=== PATIENT | female | born 1955 | race African-American/Black ===

== ENCOUNTER 2017-12-27 03:07 | Inpatient (IN) | payer BC ==
[~2017-12-27] VITALS: Ht 165.1 cm; Wt 74.4 kg
[2017-12-27] VITALS (8 sets, daily range): BP systolic 104–128; BP diastolic 62–75
[2017-12-27] MEDS ORDERED: IBUP-1007 PO (04:45)
[2017-12-27] MEDS ORDERED: FAMO-63 PO (04:45)
[2017-12-27] MEDS ORDERED: IBUPROFEN 400 MG TABLET. PO PRN (06:15)
[2017-12-27] MEDS ORDERED: ONDANSETRON PF 4 MG/2 ML VIAL. IV PRN ×2 (06:15→10:00)
--- NOTE | 2017-12-27 08:37 | PDOC1 ---
History and Physical Date of Admission Date of Admission DATE: 12/27/17 TIME: 08:37 Identification/Chief Complaint Chief Complaint Intractable Nausea and vomiting Dizziness Lower back pain Right carotid body mass Source Source: Patient History of Present Illness History of Present Illness Ms Sidhu is a pleasant 62 yo F w/ PMHx chronic LBP who p/w intractable nausea and vomiting with dizziness to [facility] ED overnight. Over the past 2 days she had become progressively more dizzy, lost her balance frequently and began with 8-20 episodes of emesis that was not improved with laying down or medications at home. She went to ED and after multiple, 3, doses of benadryl and 3 of compazine she finally felt improved. 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 She was transferred here for further treatment. Currently her dizziness is present when turning to the right, she has nausea, but no further vomiting currently. On ROS she has no other complaints, does note she has a history of chronic LBP for which she takes occasional NSAIDs, but also underwent LESI this past Friday in [place], feels her symptoms began soon after this. She did undergo MRI of brain and spine prior to her procedure, these records are not currently available. 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 Was accompanied by family initially, but currently is by herself in the room, relatively comfortable. Past Medical History Cardiovascular: No pertinent hx Pulmonary: No pertinent hx GI: No pertinent hx Heme/Onc: No pertinent hx Hepatobiliary: No pertinent hx Psych: No pertinent hx Musculoskeletal: low back pain Rheumatologic: No pertinent hx Infectious disease: No pertinent hx ENT: No pertinent hx Renal/: No pertinent hx Endocrine: No pertinent hx Dermatology: No pertinent hx Past Surgical History Past Surgical History: Other (LESI lumbar spine), No pertinent history Family History Family History: High Cholestrol, Hypertension Social History Smoke: Quit (1 week ago) ALCOHOL: none Drugs: None Current Medications Current Medications Current Medications Ondansetron HCl (Zofran) 4 mg PRN Q4HRS PRN IV NAUSEA/VOMITING; Start 12/27/17 at 06:15 Ibuprofen (Motrin) 400 mg PRN Q6HRS PRN PO INFLAMMATION; Start 12/27/17 at 06: 15 Active Scripts Active Reported Ibuprofen 600 Mg Tablet 600 Mg PO PRN Q6HRS PRN Pepcid (Famotidine) 20 Mg Tablet 20 Mg PO HS Allergies Allergies: Coded Allergies: No Known Allergies (Verified Allergy, Unknown, 12/27/17) ROS General: No: Chills, Night Sweats, Fatigue, Malaise, Appetite, Other PSYCHOLOGICAL ROS: No: Anxiety, Behavioral Disorder, Concentration difficultie , Decreased libido, Depression, Disorientation, Hallucinations, Hostility, Irritablity, Memory difficulties, Mood Swings, Obsessive thoughts, Physical abuse, Sexual abuse, Sleep disturbances, Suicidal ideation, Other Eyes: No Blurry vision, No Decreased vision, No Double vision, No Dry eyes, No Excessive tearing, No Eye Pain, No Itchy Eyes, No Loss of vision, No Photophobia , No Scotomata, No Uses contacts, No Uses glasses, No Other HEENT: YES: Vertigo; No: Heacaches, Visual Changes, Hearing change, Nasal congestion, Nasal discharge, Oral lesions, Sinus pain, Sore Throat, Epistaxis, Sneezing, Snoring, Tinnitus, Vocal changes, Other ALLERGY AND IMMUNOLOGY: No: Hives, Insect Bite Sensitivity, Itchy/Watery Eyes, Nasal Congestion, Post Nasal Drip, Seasonal Allergies, Other Hematological and Lymphatic: No: Bleeding Problems, Blood Clots, Blood Transfusions, Brusing, Night Sweats, Pallor, Swollen Lymph Nodes, Other ENDOCRINE: No: Breast Changes, Galactorrhea, Hair Pattern Changes, Hot Flashes , Malaise/lethargy, Mood Swings, Palpitations, Polydipsia/polyuria, Skin Changes , Temperature Intolerance, Unexpected Weight Changes, Other Breast: No New/Changing Breast Lumps, No Nipple changes, No Nipple discharge, No Other Respiratory: No: Cough, Hemoptysis, Orthopnea, Pleuritic Pain, Shortness of breath, SOB with excertion, Sputum Changes, Stridor, Tachypnea, Wheezing, Other Cardiovascular: No Chest Pain, No Palpitations, No Orthopnea, No Paroxysmal Noc. Dyspnea, No Edema, No Lt Headedness, No Other Gastrointestinal: Yes Nausea, Yes Vomiting, Yes Abdominal Pain; No Diarrhea, No Constipation, No Melena, No Hematochezia, No Other Genitourinary: No Dysuria, No Frequency, No Incontinence, No Hematuria, No Retention, No Discharge, No Urgency, No Pain, No Flank Pain, No Other, No , No , No , No , No , No , No Musculoskeletal: Yes Gait Disturbance; No Joint Pain, No Joint Stiffness, No Joint Swelling, No Muscle Pain, No Muscular Weakness, No Pain In:, No Swelling In:, No Other Neurological: Yes Dizziness, Yes Gait Disturbance; No Behavorial Changes, No Bowel/Bladder ControlChng, No Confusion, No Headaches, No Impaired Coord/balance, No Memory Loss, No Numbness/Tingling, No Seizures, No Speech Problems, No Tremors, No Visual Changes, No Weakness, No Other Skin: No Dry Skin, No Eczema, No Hair Changes, No Lumps, No Mole Changes, No Mottling, No Nail Changes, No Pruritus, No Rash, No Skin Lesion Changes, No Other, No Acne Physical Exam General: Alert, Oriented X3, Cooperative, No acute distress HEENT: Atraumatic, PERRLA, EOMI, Mucous membr. moist/pink Lungs: Clear to auscultation, Normal air movement Heart: S1S2, RRR, no murmurs Abdomen: Normal bowel sounds, Soft, No tenderness, No hepatosplenomegaly, No masses Extremities: No clubbing, No cyanosis, No edema, Normal pulses, No tenderness/ swelling Skin: No rashes, No breakdown, No significant lesion Neuro: Normal speech, Strength at 5/5 X4 ext, Normal tone, Sensation intact, Cranial nerves 3-12 NL, Reflexes 2+, Other (Unsteady gait, slight nystagmus with rightward gaze prolonged) Psych/Mental Status: Mental status NL, Mood NL Vitals Vitals Vital Signs Date Time Temp Pulse Resp B/P (MAP) Pulse Ox O2 Delivery O2 Flow Rate FiO2 12/27/17 07:25 98.3 76 12 128/68 (88) 98 Room Air 98.3 VTE Prophylaxis Ordered VTE Prophylaxis Devices: Yes VTE Pharmacological Prophylaxi: No Assessment/Plan Assessment/Plan A/P: Intractable nausea and vomiting - possibly 2/2 vertigo. She has no meningeal signs and no leukocytosis, unlikely to have meningitis complications from her epidural. Compazine, zofran IV for now. Dizziness - with loss of balance, sounds to be vertigo. She had recent MRI not available, but concerning right carotid body mass may be the culprit. She does not wish for repeat MRI. PT for candace maneuvering. consult neuro. Check BMP, TSH. 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 No sign of CVA. She currently does not wish for a repeat MRI Smoker - quit 1 week ago using gum. She will request nicotine patch as I have offered Chronic LBP - s/p LESI 4 days ago, feels improved currently on tylenol and occasional ibuprofen. Will monitor FEN - NPO until nausea controlled and await vascular surgery eval, then ok for general diet PPX - SCDs FULL CODE Inpatient for intractable nausea, vomiting, inability to walk and carotid body mass will need at least 2 midnights of inpatient care. BRODY JIANG MD Dec 27, 2017 08:37
[2017-12-27] MEDS ORDERED: LACTULOSE 20 GM/30 ML SOLUTION. PO PRN (10:00)
[2017-12-27] MEDS ORDERED: ACETAMINOPHEN 325 MG TABLET. PO PRN (10:00)
[2017-12-27] MEDS ORDERED: MECLIZINE HCL 12.5 MG TABLET. PO PRN (10:00)
[2017-12-27] MEDS ORDERED: PROCHLORPERAZINE 10 MG/2 ML VIAL. IV PRN (10:00)
[2017-12-27] MEDS: IV RINGERS,LACTATED 1000ML 1,000 ML IV SCH ×2 (10:46→23:50)
--- NOTE | 2017-12-27 12:33 | PDOC2 ---
NEUROLOGY CONSULT Date of Admission Date of Admission DATE: 12/27/17 TIME: 12:08 Reason for Consult Reason for Consult: Dizziness, carotid body tumor Referring Physician Referring Physician: Dr. Rey Chapman Identification/Chief Complaint Chief Complaint Patient is a pleasant 62-year-old woman who developed symptoms on December 25, 2017. She initially felt off-balance and found herself stumbling. She had a slight headache although not severe and not currently present. Turning felt weird and made her feel more off balance. She had received a lumbar epidural injection of steroids on December 17, 2017 and was concern this was a side effect. She called the pain clinic who performed the study who felt it was not. She went to [facility] emergency room where she was felt to have a right ear infection. They noticed excoriation and swelling of the right ear. He performed a CT scan of the head and sinuses. This did not reveal an intracranial process but did reveal a tumor where the right carotid bifurcation was located. She underwent a CT angiogram of the neck which did confirm the presence of the tumor. She was transferred to [facility] for further evaluation. The epidural was quite successful at relieving her back pain. She does not have any back pain or tenderness. Sitting or standing makes her head swimming. She has not had hoarseness, double vision or trouble swallowing. Current Medications Current Medications Medications prior to admission: No prescription medications Current Medications Ondansetron HCl (Zofran) 4 mg PRN Q4HRS PRN IV NAUSEA/VOMITING; Start 12/27/17 at 06:15; Stop 12/27/17 at 10:01; Status DC Ibuprofen (Motrin) 400 mg PRN Q6HRS PRN PO INFLAMMATION; Start 12/27/17 at 06: 15 Ringer's Solution 1,000 ml @ 75 mls/hr [id number] IV Last administered on at 10:46; Start 12/27/17 at 09:50 Ondansetron HCl (Zofran) 4 mg PRN Q6HRS PRN IV NAUSEA/VOMITING; Start 12/27/17 at 10:00 Prochlorperazine Edisylate (Compazine) 10 mg PRN Q6HRS PRN IV NAUSEA/VOMITING; Start 12/27/17 at 10:00 Acetaminophen (Tylenol) 650 mg PRN Q6HRS PRN PO Headaches, Temp > 101.5F; Start 12/27/17 at 10:00 Senna/Docusate Sodium (Senna Plus) 1 tab BID PO ; Start 12/27/17 at 12:00 Lactulose (Lactulose) 20 gm PRN Q12HR PRN PO CONSTIPATION; Start 12/27/17 at 10 :00 Meclizine HCl (Antivert) 12.5 mg PRN Q6HRS PRN PO DIZZINESS; Start 12/27/17 at 10:00 Active Scripts Active Reported Ibuprofen 600 Mg Tablet 600 Mg PO PRN Q6HRS PRN Pepcid (Famotidine) 20 Mg Tablet 20 Mg PO HS Allergies Allergies: Coded Allergies: No Known Allergies (Verified Allergy, Unknown, 12/27/17) ROS Review of System Constitutional: Negative Eyes: Negative HENT: She has right ear discomfort. Respiratory: Negative Cardiovascular: Negative GI: Negative : She's had some constipation. Musculoskeletal: She was having severe back pain but this has responded to the epidural injection performed December 17, 2017. Neurologic: She has dizziness which is more of a vertiginous sensation or head swimming. Hematologic: Negative Lymphatic: Negative Psychiatric: She has a minor amount of depression. Physical Exam Physical Examination She was alert, awake and cooperative. Speech was fluent and clear. She is a good fund of recent and remote knowledge. Attention and concentration was intact. She appeared well-groomed and well-nourished. She was fully oriented. Examination of the cranial nerves revealed visual page were full to confrontation. Extraocular movements were intact. The eyes were conjugate. Pursuit movements were smooth and saccadic Movements were without dysmetria. Pupils were 3 mm. Funduscopic examination revealed an abnormal retina. There was no papilledema but she had areas of pigmentation. The muscles of mastication and facial expression were powerful symmetrically. Facial sensation was normal. Hearing was intact to finger rub bilaterally. The palate arch symmetrically and the tongue was midline with full range of motion. Sternocleidomastoid and trapezius were powerful. I did not see any rash or lesions around her ear. I do not palpate a mass in the neck. Muscle bulk and tone was normal. There was no arm or leg drift. There was no rebound. She had a tiny amount of asterixis. Power was full and symmetric in the upper and lower extremities. Reflexes were 2/4 in the upper and lower extremities. The toes are downgoing bilaterally. Coordination testing with finger to nose, heel to tucker, fine motor and rapid alternating movements was well performed. The sensory exam was intact to pain, light touch, proprioception, graphesthesia, cold thermal and vibration. There was no extinction to double simultaneous stimulation. Gait was not testable. She was able to sit for a few minutes but then she became dizzy and had to lie down. I did not see nystagmus. Auscultation of the carotid arteries did not reveal a bruit. Heart rhythm was regular without a murmur. Peripheral pulses were 2/4 and symmetric in the wrists and in the feet. There was no edema or cyanosis. I did not see a rash. Vitals VITALS Vital Signs Date Time Temp Pulse Resp B/P (MAP) Pulse Ox O2 Delivery O2 Flow Rate FiO2 12/27/17 11:03 98.5 70 14 124/69 (87) 97 Room Air 98.5 Labs Labs Laboratory Tests Test 12/27/17 10:40 Thyroid Stimulating Hormone (TSH) 0.777 uIU/mL (0.358-3.74) Laboratory Tests Test 12/27/17 10:40 Thyroid Stimulating Hormone (TSH) 0.777 uIU/mL (0.358-3.74) Images Images I reviewed the imaging results from [facility] regarding CT head and sinuses as well as CT angiogram of the neck. This revealed the lesion on the right carotid but did not reveal any other significant abnormalities. The MRI reports and images are not available from [facility]. A request has been sent. Assessment/Plan Assessment/Plan Patient is a pleasant 62-year-old woman who developed dizziness beginning December 25, 2017. She underwent an epidural injection of her lumbar spine December 17, 2017. I don't feel this relates to her current symptoms. She underwent investigation with CT scan had of the sinuses which incidentally revealed the possibility of a tumor in the right carotid bulb. It's likely this tumor also does not relate to her current symptoms. She had an MRI of the head and neck prior the symptoms the results of which are unavailable but have been requested this likely represents a vestibulopathy. I will initiate meclizine and Valium to try to reduce her dizziness. It's my understanding that vascular surgery has been consult at to comment upon the right carotid body tumor. I've asked the nurse to perform some orthostatic blood pressures. She is on close telemetry monitoring to see if there are fluctuations. I would be happy to reevaluate. KERMIT LÓPEZ MD Dec 27, 2017 12:33
[2017-12-27] MEDS: SENNOSIDES/DOCUSATE 8.6/50MG TABLET. PO SCH ×2 (15:10→20:22)
[2017-12-27] MEDS: diazePAM 2 MG TABLET PO SCH ×2 (15:11→20:32)
[2017-12-27] MEDS: MECLIZINE HCL 12.5 MG TABLET. PO SCH ×2 (15:11→20:23)
[2017-12-27] MEDS: NEOMYCIN/POLYMYXIN/HC OTIC SUSPENSION 10ML BOTTLE. AU SCH ×2 (17:46→23:52)
[2017-12-27] MEDS ORDERED: NICOTINE 14MG PATCH. TD PRN (19:15)
[2017-12-28 03:00] VITALS: BP 120/65
[2017-12-28] MEDS: NEOMYCIN/POLYMYXIN/HC OTIC SUSPENSION 10ML BOTTLE. AU SCH ×3 (06:32→18:04)
--- NOTE | 2017-12-28 06:58 | PDOC ---
PROGRESS NOTES Chief Complaint Chief Complaint Intractable nausea and vomiting Dizziness Right carotid body mass Smoker Chronic LBP History of Present Illness History of Present Illness Ms Sidhu is a pleasant 62 yo F w/ PMHx chronic LBP who p/w intractable nausea and vomiting with dizziness to [facility] ED overnight. Over the past 2 days she had become progressively more dizzy, lost her balance frequently and began with 8-20 episodes of emesis that was not improved with laying down or medications at home. She went to ED and after multiple, 3, doses of benadryl and 3 of compazine she finally felt improved. 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 She was transferred here for further treatment. Currently her dizziness is only present when turning to the right. Nausea resolved. On ROS she has a complaint she did not mention on ROS on admission, she has been losing vision in her right eye occasionally over the past 6 weeks or so and has been seen by ophtho, recommended to have retinal photography. A/P: Intractable nausea and vomiting - possibly 2/2 vertigo. She has no meningeal signs and no leukocytosis, unlikely to have meningitis complications from her epidural. Compazine, zofran IV for now. Right eye vision loss - this history if concerning for retinal vascular thrombosis, will d/w neuro if this should be investigated Dizziness - with loss of balance, sounds to be vertigo. Negative Elba-Halpike with PT 11/3. She had recent MRI not available, but concerning right carotid body mass may or may not be the culprit. She does not wish for repeat MRI. Appreciate neuro consult. Cont valium and meclizine prn. Check BMP, TSH. 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 No sign of CVA. She currently does not wish for a repeat MRI Smoker - quit 1 week ago using gum. She will request nicotine patch as I have offered Chronic LBP - s/p LESI 4 days ago, feels improved currently on tylenol and occasional ibuprofen. Will monitor FEN - General diet PPX - SCDs FULL CODE Inpatient for intractable nausea, vomiting, inability to walk and carotid body mass will need at least 2 midnights of inpatient care. Vitals Vitals Vital Signs Date Time Temp Pulse Resp B/P (MAP) Pulse Ox O2 Delivery O2 Flow Rate FiO2 12/28/17 03:00 98.3 68 16 120/65 (83) 98 Room Air 98.3 Physical Exam General: Alert, Oriented X3, Cooperative, No acute distress Abdomen: Normal bowel sounds, Soft, No tenderness, No hepatosplenomegaly, No masses Extremities: No clubbing, No cyanosis, No edema, Normal pulses, No tenderness/ swelling Skin: No rashes, No breakdown, No significant lesion Labs LABS Laboratory Tests Test 12/27/17 10:40 Thyroid Stimulating Hormone (TSH) 0.777 uIU/mL (0.358-3.74) Comment Review of Relevant I have reviewed the following items fanny (where applicable) has been applied. Labs Laboratory Tests Test 12/27/17 10:40 Thyroid Stimulating Hormone (TSH) 0.777 uIU/mL (0.358-3.74) Laboratory Tests Test 12/27/17 10:40 Thyroid Stimulating Hormone (TSH) 0.777 uIU/mL (0.358-3.74) Medications Current Medications Ondansetron HCl (Zofran) 4 mg PRN Q4HRS PRN IV NAUSEA/VOMITING; Start 12/27/17 at 06:15; Stop 12/27/17 at 10:01; Status DC Ibuprofen (Motrin) 400 mg PRN Q6HRS PRN PO INFLAMMATION; Start 12/27/17 at 06: 15 Ringer's Solution 1,000 ml @ 75 mls/hr [id number] IV Last administered on at 23:50; Start 12/27/17 at 09:50 Ondansetron HCl (Zofran) 4 mg PRN Q6HRS PRN IV NAUSEA/VOMITING; Start 12/27/17 at 10:00 Prochlorperazine Edisylate (Compazine) 10 mg PRN Q6HRS PRN IV NAUSEA/VOMITING; Start 12/27/17 at 10:00 Acetaminophen (Tylenol) 650 mg PRN Q6HRS PRN PO Headaches, Temp > 101.5F; Start 12/27/17 at 10:00 Senna/Docusate Sodium (Senna Plus) 1 tab BID PO Last administered on 12/27/17at 20:22; Start 12/27/17 at 12:00 Lactulose (Lactulose) 20 gm PRN Q12HR PRN PO CONSTIPATION; Start 12/27/17 at 10 :00 Meclizine HCl (Antivert) 12.5 mg PRN Q6HRS PRN PO DIZZINESS; Start 12/27/17 at 10:00 Meclizine HCl (Antivert) 25 mg TID PO Last administered on 12/27/17at 20:23; Start 12/27/17 at 14:00 Diazepam (Valium) 2 mg TID PO Last administered on 12/27/17at 15:11; Start 12/27 at 14:00 Neomycin/ Polymyxin/ Hydrocortisone (Cortisporin Otic) 2 drop Q6HRS AU Last administered on 12/28/17at 06:32; Start 12/27/17 at 18:00 Nicotine (Nicoderm Cq 14mg) 1 patch PRN DAILY PRN TD SMOKING CESSATION; Start 12/27/17 at 19:15 Active Scripts Active Reported Ibuprofen 600 Mg Tablet 600 Mg PO PRN Q6HRS PRN Pepcid (Famotidine) 20 Mg Tablet 20 Mg PO HS Vitals/I & O Vital Sign - Last 24 Hours 12/27/17 12/27/17 12/27/17 12/27/17 07:25 11:03 15:38 19:50 Temp 98.3 98.5 97.8 98.7 98.3 98.5 97.8 98.7 Pulse 76 70 66 74 Resp 12 14 14 18 B/P (MAP) 128/68 (88) 124/69 (87) 128/70 (89) 120/62 (81) Pulse Ox 98 97 98 98 O2 Delivery Room Air Room Air Room Air Room Air 12/27/17 12/28/17 23:40 03:00 Temp 98.3 98.3 98.3 98.3 Pulse 82 68 Resp 16 16 B/P (MAP) 120/70 (87) 120/65 (83) Pulse Ox 98 98 O2 Delivery Room Air Room Air Intake and Output 12/27/17 12/27/17 12/28/17 15:00 23:00 07:00 Intake Total 340 ml 1250 ml Balance 340 ml 1250 ml BRODY JIANG MD Dec 28, 2017 06:58
[2017-12-28 07:34] VITALS: BP 123/72
[2017-12-28 07:34] LABS: BASO # 0.1 x10^3/uL (0.0-0.2); BASO % 1 % (0-3); EOS # 0.1 x10^3/uL (0.0-0.7); EOS % 1 % (0-3); HEMATOCRIT 36.6 % (36.0-47.0); HEMOGLOBIN 12.3 g/dL (12.0-15.5); LYMPH # 3.8 x10^3/uL (1.0-4.8); LYMPH % 48 % (24-48); MEAN CORPUSCULAR HEMOGLOBIN 30 pg (25-35); MEAN CORPUSCULAR HGB CONC 34 g/dL (31-37); MEAN CORPUSCULAR VOLUME 89 fL (79-100); MONO # 0.6 x10^3/uL (0.0-1.1); MONO % 8 % (0-9); NEUT # 3.4 x10^3uL (1.8-7.7); NEUT % 43 % (31-73); RED BLOOD COUNT 4.13 x10^6/uL (3.50-5.40); RED CELL DISTRIBUTION WIDTH 14.2 % (11.5-14.5)
[2017-12-28 08:01] LABS: PLATELET COUNT 242 x10^3/uL (140-400)
[2017-12-28] MEDS: SENNOSIDES/DOCUSATE 8.6/50MG TABLET. PO SCH ×2 (08:54→21:29)
[2017-12-28] MEDS: MECLIZINE HCL 12.5 MG TABLET. PO SCH ×3 (08:54→21:29)
[2017-12-28] MEDS: diazePAM 2 MG TABLET PO SCH ×3 (08:56→21:29)
[2017-12-28 11:14] VITALS: BP 127/70
--- NOTE | 2017-12-28 12:11 | PDOC2 ---
CONSULT Date of Consult Date of Consult DATE: 12/28/17 TIME: 12:00 History of Present Illness Reason for Visit: This is a very pleasant 62-year-old female who is an active smoker who smokes a half pack per day for the last 30 years. She presented to [facility] with dizziness and nausea. 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 Patient's symptoms are markedly improved today but she is still having some episodes of dizziness. She denies any constitutional symptoms with unintentional weight loss , fevers, or chills. She denies any palpitations. She denies a erratic blood pressure fluctuations. She is otherwise healthy and denies any angina with activity. Past Medical History Cardiovascular: No pertinent hx Pulmonary: No pertinent hx, COPD (active smoker) GI: No pertinent hx, Other (gallbladder removal) Heme/Onc: No pertinent hx Hepatobiliary: No pertinent hx Psych: No pertinent hx Musculoskeletal: low back pain Rheumatologic: No pertinent hx Infectious disease: No pertinent hx ENT: No pertinent hx, Other (right-sided eardrum inflammation) Renal/: No pertinent hx Endocrine: No pertinent hx Dermatology: No pertinent hx Past Surgical History Past Surgical History: Cholecystectomy, Other (LESI lumbar spine), No pertinent history Family History Family History: High Cholestrol, Hypertension Social History <1 pack per day (half a pack per day for 30 years) ALCOHOL: none Drugs: None Current Medications Current Medications Current Medications Ondansetron HCl (Zofran) 4 mg PRN Q4HRS PRN IV NAUSEA/VOMITING; Start 12/27/17 at 06:15; Stop 12/27/17 at 10:01; Status DC Ibuprofen (Motrin) 400 mg PRN Q6HRS PRN PO INFLAMMATION Last administered on at 10:19; Start 12/27/17 at 06:15 Ringer's Solution 1,000 ml @ 75 mls/hr [id number] IV Last administered on at 23:50; Start 12/27/17 at 09:50; Stop 12/28/17 at 10:01; Status DC Ondansetron HCl (Zofran) 4 mg PRN Q6HRS PRN IV NAUSEA/VOMITING, 1ST CHOICE; Start 12/27/17 at 10:00 Prochlorperazine Edisylate (Compazine) 10 mg PRN Q6HRS PRN IV NAUSEA/VOMITING, 2ND CHOICE; Start 12/27/17 at 10:00 Acetaminophen (Tylenol) 650 mg PRN Q6HRS PRN PO Headaches, Temp > 101.5F; Start 12/27/17 at 10:00 Senna/Docusate Sodium (Senna Plus) 1 tab BID PO Last administered on 12/27/17at 20:22; Start 12/27/17 at 12:00 Lactulose (Lactulose) 20 gm PRN Q12HR PRN PO CONSTIPATION; Start 12/27/17 at 10 :00 Meclizine HCl (Antivert) 12.5 mg PRN Q6HRS PRN PO DIZZINESS; Start 12/27/17 at 10:00 Meclizine HCl (Antivert) 25 mg TID PO Last administered on 12/28/17at 08:54; Start 12/27/17 at 14:00 Diazepam (Valium) 2 mg TID PO Last administered on 12/27/17at 15:11; Start 12/27 at 14:00 Neomycin/ Polymyxin/ Hydrocortisone (Cortisporin Otic) 2 drop Q6HRS AU Last administered on 12/28/17at 06:32; Start 12/27/17 at 18:00 Nicotine (Nicoderm Cq 14mg) 1 patch PRN DAILY PRN TD SMOKING CESSATION; Start 12/27/17 at 19:15 Active Scripts Active Reported Ibuprofen 600 Mg Tablet 600 Mg PO PRN Q6HRS PRN Pepcid (Famotidine) 20 Mg Tablet 20 Mg PO HS Allergies Allergies: Coded Allergies: No Known Allergies (Verified Allergy, Unknown, 12/27/17) ROS HEENT: YES: Vertigo Gastrointestinal: Yes Nausea Neurological: Yes Dizziness Physical Exam General: Alert, Oriented X3, Cooperative, No acute distress HEENT: Atraumatic, PERRLA, EOMI Lungs: Clear to auscultation, Normal air movement Heart: Regular rate, Normal S1, Normal S2, No murmurs Abdomen: Normal bowel sounds, Soft, No tenderness Extremities: No cyanosis, No edema, Normal pulses Skin: No rashes, No breakdown, No significant lesion Neuro: Normal gait, Normal speech, Strength at 5/5 X4 ext, Sensation intact, Cranial nerves 3-12 NL Psych/Mental Status: Mental status NL, Mood NL MUSCULOSKELETAL: Full range of motion without pain Vitals VITALS Vital Signs Date Time Temp Pulse Resp B/P (MAP) Pulse Ox O2 Delivery O2 Flow Rate FiO2 12/28/17 11:14 98.8 73 16 127/70 (89) 98 Room Air 98.8 Labs Labs Laboratory Tests Test 12/27/17 10:40 12/28/17 06:30 Thyroid Stimulating Hormone (TSH) 0.777 uIU/mL (0.358-3.74) White Blood Count 8.0 x10^3/uL (4.0-11.0) Red Blood Count 4.13 x10^6/uL (3.50-5.40) Hemoglobin 12.3 g/dL (12.0-15.5) Hematocrit 36.6 % (36.0-47.0) Mean Corpuscular Volume 89 fL (79-100) Mean Corpuscular Hemoglobin 30 pg (25-35) Mean Corpuscular Hemoglobin Concent 34 g/dL (31-37) Red Cell Distribution Width 14.2 % (11.5-14.5) Platelet Count 242 x10^3/uL (140-400) Neutrophils (%) (Auto) 43 % (31-73) Lymphocytes (%) (Auto) 48 % (24-48) Monocytes (%) (Auto) 8 % (0-9) Eosinophils (%) (Auto) 1 % (0-3) Basophils (%) (Auto) 1 % (0-3) Neutrophils # (Auto) 3.4 x10^3uL (1.8-7.7) Lymphocytes # (Auto) 3.8 x10^3/uL (1.0-4.8) Monocytes # (Auto) 0.6 x10^3/uL (0.0-1.1) Eosinophils # (Auto) 0.1 x10^3/uL (0.0-0.7) Basophils # (Auto) 0.1 x10^3/uL (0.0-0.2) Laboratory Tests Test 12/28/17 06:30 White Blood Count 8.0 x10^3/uL (4.0-11.0) Red Blood Count 4.13 x10^6/uL (3.50-5.40) Hemoglobin 12.3 g/dL (12.0-15.5) Hematocrit 36.6 % (36.0-47.0) Mean Corpuscular Volume 89 fL (79-100) Mean Corpuscular Hemoglobin 30 pg (25-35) Mean Corpuscular Hemoglobin Concent 34 g/dL (31-37) Red Cell Distribution Width 14.2 % (11.5-14.5) Platelet Count 242 x10^3/uL (140-400) Neutrophils (%) (Auto) 43 % (31-73) Lymphocytes (%) (Auto) 48 % (24-48) Monocytes (%) (Auto) 8 % (0-9) Eosinophils (%) (Auto) 1 % (0-3) Basophils (%) (Auto) 1 % (0-3) Neutrophils # (Auto) 3.4 x10^3uL (1.8-7.7) Lymphocytes # (Auto) 3.8 x10^3/uL (1.0-4.8) Monocytes # (Auto) 0.6 x10^3/uL (0.0-1.1) Eosinophils # (Auto) 0.1 x10^3/uL (0.0-0.7) Basophils # (Auto) 0.1 x10^3/uL (0.0-0.2) Assessment/Plan Assessment/Plan Right-sided carotid body tumor--I did review the CT angiogram study from [facility] which does reveal a mass in the crotch of the carotid bifurcation on the right. I do not think the carotid mass is related to the patient's presenting symptoms of dizziness and nausea. The patient was treated for an irritated eardrum and I do not know whether she has further inner ear dysfunction. Consideration of evaluation by ear nose and throat if her symptoms persist could be warranted. In regards to the mass, I do recommend that the mass be excised. Given her smoking history, I have asked that cardiology see her in evaluation for occult coronary artery disease and in preparation for vascular surgery as we will need to perform this operation under general anesthesia. The details of the procedure were discussed with the patient and her sister and all questions were answered to their satisfaction. I did outline the risks of the procedure including but not limited to cranial nerve injury which can be permanent involving her analysis to the tongue, swallowing mechanism, and vocal cords. I also described the risk of stroke, heart attack, deep vein thrombosis, pulmonary embolism, and certainly the rare chance of . Once the patient's workup is completed and the patient is deemed an acceptable candidate for surgery, the patient can be discharged home. Due to the nature of the surgery, I will perform the procedure at the [facility]. My office will contact the patient for scheduling once discharged. All questions were answered to the patient's and her sister satisfaction today. TASHI HERNANDEZ DO Dec 28, 2017 12:11
[2017-12-28 15:30] VITALS: BP 130/67
--- NOTE | 2017-12-28 18:10 | PDOC ---
PROGRESS NOTES Assessment 1. Right carotid body tumor-this seems unlikely to be provoking her vestibular symptoms. I reviewed the report from the vascular surgeon who also did not feel this would provoke the current symptoms. 2. Vestibulopathy affecting the right ear-this would more likely explain her dizziness. It would seem unrelated to the carotid body tumor as well as the epidural injection of steroid of the lumbar spine. She seems to be feeling better with scheduled meclizine. She did receive one dose of Valium but did not want more could she was concerned it was designed to sedate her. She was up today walking with therapy. She is really only getting dizzy now when she turns her head to the right. She does not have evidence of nystagmus or extraocular movement abnormality. 3. Impaired vision of the right eye-the cause of this is not clear. She had seen her tree doctor who referred her to a retinal specialist. She was not able to read with the right eye alone but could read with the left eye. She reports that she has contact lenses in both eyes. I would be concerned that there may be an inflammatory process in the nervous system contributing to all of this except that all the cranial nerves seem intact except for the visual acuity of the right eye. 4. The epidural injection of steroids seems to have been quite helpful at reducing her severe lower back pain. Plan 1. She will be assessed by cardiology as a preoperative investigation to determine her cardiovascular risk for general anesthesia as recommended by vascular surgery. 2. Once she is cleared for surgery it sounds as if vascular surgery will transfer her to [facility] for the procedure. It's possible she may be dismissed and then readmitted at a later time depending on the schedule. 3. The vestibulopathy appears to be responding to meclizine. I discussed with her that the Valiums purposes not to sedate. She will restarted and if she finds herself sedated we can reduce the dosage to 1 mg every 8 hours. 4. If she continues to have multiple symptoms I would consider a lumbar puncture in order to obtain spinal fluid to look for evidence of inflammation, atypical infection or malignancy. Subjective I'm feeling a little better. I was able to walk with therapy today. If I get exhausted I get more dizzy I've been able to eat and keep food down. Objective Vital Signs Date Time Temp Pulse Resp B/P (MAP) Pulse Ox O2 Delivery O2 Flow Rate FiO2 11/4/18 15:30 98.2 76 14 130/67 (88) 98 Room Air 98.2 Intake and Output 12/28/17 07:00 Intake Total 1590 ml Balance 1590 ml Intake Oral 690 ml IV Total 900 ml # Voids 6 PHYSICAL EXAM She was alert, awake and cooperative. Speech was fluent and clear. She had a good fund of recent and remote knowledge. Attention and concentration was intact. She had a tendency to not answer questions exactly as the question was intended. All her answers eventually become appropriate but I have to ask my question and different ways. Cranial nerves II through XII were intact except for diminished visual acuity of the right eye. I did not see nystagmus. The eyes were conjugate. Pursuit movements were smooth and saccadic eye movements were without dysmetria. Muscle bulk and tone was normal. There was no drift or abnormal movement. Power was full and symmetric. Coordination testing was intact with finger to nose and fine motor. Sensation was intact to light touch. Review of Relevant I have reviewed the following items fanny (where applicable) has been applied. Labs Laboratory Tests Test 12/27/17 10:40 12/28/17 06:30 Thyroid Stimulating Hormone (TSH) 0.777 uIU/mL (0.358-3.74) White Blood Count 8.0 x10^3/uL (4.0-11.0) Red Blood Count 4.13 x10^6/uL (3.50-5.40) Hemoglobin 12.3 g/dL (12.0-15.5) Hematocrit 36.6 % (36.0-47.0) Mean Corpuscular Volume 89 fL (79-100) Mean Corpuscular Hemoglobin 30 pg (25-35) Mean Corpuscular Hemoglobin Concent 34 g/dL (31-37) Red Cell Distribution Width 14.2 % (11.5-14.5) Platelet Count 242 x10^3/uL (140-400) Neutrophils (%) (Auto) 43 % (31-73) Lymphocytes (%) (Auto) 48 % (24-48) Monocytes (%) (Auto) 8 % (0-9) Eosinophils (%) (Auto) 1 % (0-3) Basophils (%) (Auto) 1 % (0-3) Neutrophils # (Auto) 3.4 x10^3uL (1.8-7.7) Lymphocytes # (Auto) 3.8 x10^3/uL (1.0-4.8) Monocytes # (Auto) 0.6 x10^3/uL (0.0-1.1) Eosinophils # (Auto) 0.1 x10^3/uL (0.0-0.7) Basophils # (Auto) 0.1 x10^3/uL (0.0-0.2) Laboratory Tests Test 12/28/17 06:30 White Blood Count 8.0 x10^3/uL (4.0-11.0) Red Blood Count 4.13 x10^6/uL (3.50-5.40) Hemoglobin 12.3 g/dL (12.0-15.5) Hematocrit 36.6 % (36.0-47.0) Mean Corpuscular Volume 89 fL (79-100) Mean Corpuscular Hemoglobin 30 pg (25-35) Mean Corpuscular Hemoglobin Concent 34 g/dL (31-37) Red Cell Distribution Width 14.2 % (11.5-14.5) Platelet Count 242 x10^3/uL (140-400) Neutrophils (%) (Auto) 43 % (31-73) Lymphocytes (%) (Auto) 48 % (24-48) Monocytes (%) (Auto) 8 % (0-9) Eosinophils (%) (Auto) 1 % (0-3) Basophils (%) (Auto) 1 % (0-3) Neutrophils # (Auto) 3.4 x10^3uL (1.8-7.7) Lymphocytes # (Auto) 3.8 x10^3/uL (1.0-4.8) Monocytes # (Auto) 0.6 x10^3/uL (0.0-1.1) Eosinophils # (Auto) 0.1 x10^3/uL (0.0-0.7) Basophils # (Auto) 0.1 x10^3/uL (0.0-0.2) Medications Current Medications Ondansetron HCl (Zofran) 4 mg PRN Q4HRS PRN IV NAUSEA/VOMITING; Start 12/27/17 at 06:15; Stop 12/27/17 at 10:01; Status DC Ibuprofen (Motrin) 400 mg PRN Q6HRS PRN PO INFLAMMATION Last administered on at 10:19; Start 12/27/17 at 06:15 Ringer's Solution 1,000 ml @ 75 mls/hr [id number] IV Last administered on at 23:50; Start 12/27/17 at 09:50; Stop 12/28/17 at 10:01; Status DC Ondansetron HCl (Zofran) 4 mg PRN Q6HRS PRN IV NAUSEA/VOMITING, 1ST CHOICE; Start 12/27/17 at 10:00 Prochlorperazine Edisylate (Compazine) 10 mg PRN Q6HRS PRN IV NAUSEA/VOMITING, 2ND CHOICE; Start 12/27/17 at 10:00 Acetaminophen (Tylenol) 650 mg PRN Q6HRS PRN PO Headaches, Temp > 101.5F; Start 12/27/17 at 10:00 Senna/Docusate Sodium (Senna Plus) 1 tab BID PO Last administered on 12/27/17at 20:22; Start 12/27/17 at 12:00 Lactulose (Lactulose) 20 gm PRN Q12HR PRN PO CONSTIPATION; Start 12/27/17 at 10 :00 Meclizine HCl (Antivert) 12.5 mg PRN Q6HRS PRN PO DIZZINESS; Start 12/27/17 at 10:00 Meclizine HCl (Antivert) 25 mg TID PO Last administered on 12/28/17at 15:21; Start 12/27/17 at 14:00 Diazepam (Valium) 2 mg TID PO Last administered on 12/27/17at 15:11; Start 12/27 at 14:00 Neomycin/ Polymyxin/ Hydrocortisone (Cortisporin Otic) 2 drop Q6HRS AU Last administered on 12/28/17at 12:51; Start 12/27/17 at 18:00 Nicotine (Nicoderm Cq 14mg) 1 patch PRN DAILY PRN TD SMOKING CESSATION; Start 12/27/17 at 19:15 Active Scripts Active Reported Ibuprofen 600 Mg Tablet 600 Mg PO PRN Q6HRS PRN Pepcid (Famotidine) 20 Mg Tablet 20 Mg PO HS Vitals/I & O Vital Sign - Last 24 Hours 12/27/17 12/27/17 12/28/17 12/28/17 19:50 23:40 03:00 07:34 Temp 98.7 98.3 98.3 98.2 98.7 98.3 98.3 98.2 Pulse 74 82 68 69 Resp 18 16 16 16 B/P (MAP) 120/62 (81) 120/70 (87) 120/65 (83) 123/72 (89) Pulse Ox 98 98 98 100 O2 Delivery Room Air Room Air Room Air Room Air 12/28/17 12/28/17 11:14 15:30 Temp 98.8 98.2 98.8 98.2 Pulse 73 76 Resp 16 14 B/P (MAP) 127/70 (89) 130/67 (88) Pulse Ox 98 98 O2 Delivery Room Air Room Air Intake and Output 12/27/17 12/27/17 12/28/17 15:00 23:00 07:00 Intake Total 340 ml 1250 ml Balance 340 ml 1250 ml KERMIT LÓPEZ MD Dec 28, 2017 18:10
[2017-12-28 19:55] VITALS: BP 137/77
[2017-12-28 23:00] VITALS: BP 114/89
[2017-12-29] VITALS (8 sets, daily range): BP systolic 106–136; BP diastolic 58–77
[2017-12-29 05:59] LABS: BASO % 1 % (0-3); EOS # 0.1 x10^3/uL (0.0-0.7); EOS % 2 % (0-3); HEMATOCRIT 36.3 % (36.0-47.0); HEMOGLOBIN 12.1 g/dL (12.0-15.5); LYMPH # 2.7 x10^3/uL (1.0-4.8); LYMPH % 46 % (24-48); MEAN CORPUSCULAR HEMOGLOBIN 29 pg (25-35); MEAN CORPUSCULAR HGB CONC 33 g/dL (31-37); MEAN CORPUSCULAR VOLUME 88 fL (79-100); MONO # 0.4 x10^3/uL (0.0-1.1); MONO % 8 % (0-9); NEUT # 2.6 x10^3uL (1.8-7.7); NEUT % 44 % (31-73); PLATELET COUNT 236 x10^3/uL (140-400); RED BLOOD COUNT 4.13 x10^6/uL (3.50-5.40); RED CELL DISTRIBUTION WIDTH 14.3 % (11.5-14.5); WHITE BLOOD COUNT 5.9 x10^3/uL (4.0-11.0)
[2017-12-29] MEDS: NEOMYCIN/POLYMYXIN/HC OTIC SUSPENSION 10ML BOTTLE. AU SCH ×4 (06:00→18:00)
[2017-12-29 06:45] LABS: CALCIUM 8.9 mg/dL (8.5-10.1); CREATININE 0.8 mg/dL (0.6-1.0); GFR 88.2
[2017-12-29] MEDS: SENNOSIDES/DOCUSATE 8.6/50MG TABLET. PO SCH ×2 (09:00→20:57)
[2017-12-29] MEDS: diazePAM 2 MG TABLET PO SCH ×3 (09:07→20:58)
[2017-12-29] MEDS: MECLIZINE HCL 12.5 MG TABLET. PO SCH ×3 (09:10→20:57)
--- NOTE | 2017-12-29 10:07 | PDOC2 ---
HOWARD EMERY [facility] EPIDEMIOLOGIST 12/29/17 1007: CARDIAC CONSULT DATE OF CONSULT Date of Consult DATE: 12/29/17 TIME: 10:01 REASON FOR CONSULT Reason for Consult: Cardiac workup for vascular surgery REFERRING PHYSICIAN Referring Physician: Aaron SOURCE Source: Chart review, Patient HISTORY OF PRESENT ILLNESS HISTORY OF PRESENT ILLNESS This is a 62 yo female admitted for complains of nausea and vomiting and dizziness/vertigo. She was initially at [place] then transferred to [facility] for further evaluation. Her dizziness have been persistent and eventually was noted with right carotid mass to which she needed surgery. To what I gather so far this would be done at [facility]. Currently she denies any symptoms. Cardiac elizabeth she does not have any hx of cardiovascular disease and has been healthy for the most part. Denies of any chest pain, exertional CP, TYLER. She actually exercise 20 minutes of cardio and 15 minutes of weights at least 3x weekly without any difficulty. She use to smoke and quit recently. No recreational drugs. Deneis aqny past CVA. DM, or renal disease. PAST MEDICAL HISTORY Cardiovascular: No pertinent hx Pulmonary: Asthma CENTRAL NERVOUS SYSTEM: Other (No pertinent history) GI: GERD Heme/Onc: No pertinent hx Hepatobiliary: Cholelithiasis Psych: No pertinent hx Musculoskeletal: low back pain, Osteoarthritis Rheumatologic: No pertinent hx Infectious disease: No pertinent hx ENT: No pertinent hx Renal/: No pertinent hx Endocrine: No pertinent hx Dermatology: No pertinent hx PAST SURGICAL HISTORY Past Surgical History: Cholecystectomy, Hysterectomy FAMILY HISTORY Family History noncontributory to CV SOCIAL HISTORY Smoke: Quit ALCOHOL: none Drugs: None Lives: Alone ALLERGIES ALLERGIES: Coded Allergies: No Known Allergies (Verified Allergy, Unknown, 12/27/17) ROS Review of System 14 point ROS evaluated with pertinent positives noted per HPI PHYSICAL EXAM General: Alert, Oriented X3, Cooperative, No acute distress HEENT: Atraumatic, Mucous membr. moist/pink Lungs: Clear to auscultation, Normal air movement Heart: Regular rate (SR without ectopies), Normal S1, Normal S2, No murmurs Abdomen: Soft, No tenderness Extremities: No cyanosis, No edema Skin: No breakdown, No significant lesion Neuro: Normal speech, Sensation intact Psych/Mental Status: Mental status NL, Mood NL MUSCULOSKELETAL: Osteoarthritic changes both hands VITALS VITALS Vital Signs Date Time Temp Pulse Resp B/P (MAP) Pulse Ox O2 Delivery O2 Flow Rate FiO2 12/29/17 07:05 97.9 62 16 133/76 (95) 98 Room Air 97.9 LABS Lab: Laboratory Tests Test 12/29/17 05:20 White Blood Count 5.9 x10^3/uL (4.0-11.0) Red Blood Count 4.13 x10^6/uL (3.50-5.40) Hemoglobin 12.1 g/dL (12.0-15.5) Hematocrit 36.3 % (36.0-47.0) Mean Corpuscular Volume 88 fL (79-100) Mean Corpuscular Hemoglobin 29 pg (25-35) Mean Corpuscular Hemoglobin Concent 33 g/dL (31-37) Red Cell Distribution Width 14.3 % (11.5-14.5) Platelet Count 236 x10^3/uL (140-400) Neutrophils (%) (Auto) 44 % (31-73) Lymphocytes (%) (Auto) 46 % (24-48) Monocytes (%) (Auto) 8 % (0-9) Eosinophils (%) (Auto) 2 % (0-3) Basophils (%) (Auto) 1 % (0-3) Neutrophils # (Auto) 2.6 x10^3uL (1.8-7.7) Lymphocytes # (Auto) 2.7 x10^3/uL (1.0-4.8) Monocytes # (Auto) 0.4 x10^3/uL (0.0-1.1) Eosinophils # (Auto) 0.1 x10^3/uL (0.0-0.7) Basophils # (Auto) 0.0 x10^3/uL (0.0-0.2) Sodium Level 143 mmol/L (136-145) Potassium Level 4.0 mmol/L (3.5-5.1) Chloride Level 107 mmol/L (98-107) Carbon Dioxide Level 26 mmol/L (21-32) Anion Gap 10 (6-14) Blood Urea Nitrogen 12 mg/dL (7-20) Creatinine 0.8 mg/dL (0.6-1.0) Estimated GFR (Cockcroft-Gault) 88.2 Glucose Level 96 mg/dL (70-99) Calcium Level 8.9 mg/dL (8.5-10.1) ASSESSMENT/PLAN ASSESSMENT/PLAN Dizziness/vertigo with Right carotid mass Hx of asthma Tobaccoism: recently quit 30 pk yr. Preop cardiac eval: pending echo, she is low risk for CV events for non cardiac surgery. Recommendations 1. TTE today. 2. Surgical recommendation per vascular. SUSHMA RODRIGUEZ MD 12/29/17 2150: CARDIAC CONSULT ASSESSMENT/PLAN ASSESSMENT/PLAN Pt. seen and examined. Agree with above PERIODONTAL ASSISTANT note Low risk based on symptoms and comorbidities. She has no chest pain, able to do more than 4 mets easily. No further CV testing needed. Thanks. Pls call with questions. HOWARD EMERY APRN Dec 29, 2017 10:07 SUSHMA RODRIGUEZ MD Dec 29, 2017 21:50
--- NOTE | 2017-12-29 11:37 | CARD ---
MR#: [id number] Date of Study: 12/29/2017 Ordering Physician: HOWARD EMERY, Referring Physician: MILES AUSTIN Tech: Roseline Alicia URIEL APPROVED REPORT EXAM: Two-dimensional and M-mode echocardiogram with Doppler and color Doppler. Other Information Quality : Good INDICATION Pre-Op 2D DIMENSIONS RVDd2.8 (2.9-3.5cm)Left Atrium(2D)3.2 (1.6-4.0cm) IVSd0.8 (0.7-1.1cm)Aortic Root(2D)2.8 (2.0-3.7cm) LVDd4.9 (3.9-5.9cm)LVOT Diameter2.0 (1.8-2.4cm) PWd0.8 (0.7-1.1cm)LVDs3.2 (2.5-4.0cm) FS (%) 30.0 %SV69.9 ml LVEF(%)60.0 (>50%) Aortic Valve AoV Peak Omar.156.3cm/sAoV VTI29.5cm AO Peak GR.9.8mmHgLVOT Peak Omar.110.9cm/s AO Mean GR.5mmHgAVA (VMAX)2.26cm2 BREANA (VTI)2.50cm2 Mitral Valve MV E Iynndcqv04.6cm/sMV DECEL [id number] MV A Dldbjeap99.3cm/sE/A Ratio1.2 Tricuspid Valve TR P. Bguetokn372vk/sRAP UEUTONNJ0gmUy TR Peak Gr.21zxUwGENQ83xzDm Pulmonary Vein S1 Hupzdqzk95.4cm/sD2 Ldqxqlnw46.3cm/s LEFT VENTRICLE The left ventricle is normal size. There is normal left ventricular wall thickness. The left ventricu lar systolic function is normal and the ejection fraction is within normal range. The Ejection Fracti on is 55-60%. There is normal LV segmental wall motion. The left ventricular diastolic function and f illing is normal for age. RIGHT VENTRICLE The right ventricle is normal size. The right ventricular systolic function is normal. ATRIA The left atrium size is normal. The right atrium size is normal. The interatrial septum is intact wit h no evidence for an atrial septal defect or patent foramen ovale as noted on 2-D or Doppler imaging. AORTIC VALVE The aortic valve is minimally sclerotic but opens well. Doppler and Color Flow revealed no significan t aortic regurgitation. There is no significant aortic valvular stenosis. MITRAL VALVE The mitral valve is mildly sclerotic but opens well. There is no evidence of mitral valve prolapse. T here is no mitral valve stenosis. Doppler and Color-flow revealed trace mitral regurgitation. TRICUSPID VALVE The tricuspid valve is normal in structure and function. Doppler and Color Flow revealed trace to mil d tricuspid regurgitation. The PA pressure was estimated at 31 mmHg. There is no tricuspid valve sten osis. PULMONIC VALVE The pulmonary valve is normal in structure and function. Doppler and Color Flow revealed trace pulmon ic valvular regurgitation. There is no pulmonic valvular stenosis. GREAT VESSELS The aortic root is normal in size. The ascending aorta is not well seen. The IVC is normal in size an d collapses >50% with inspiration. PERICARDIAL EFFUSION There is no evidence of significant pericardial effusion. Critical Notification Critical Value: No <Conclusion> The left ventricular systolic function is normal and the ejection fraction is within normal range. Th e Ejection Fraction is 55-60%. There is normal LV segmental wall motion. Doppler and Color Flow revealed trace to mild tricuspid regurgitation. The PA pressure was estimated at 31 mmHg. Signed by : Brice Dukes, Electronically Approved : 12/29/2017 11:36:21
--- NOTE | 2017-12-29 12:08 | PDOC ---
PROGRESS NOTES Chief Complaint Chief Complaint IMPRESSION Intractable nausea and vomiting Dizziness Right carotid body mass Recommended that the mass be excised. Given her smoking history, cardiology HAS her in evaluation for occult coronary artery disease and in preparation for vascular surgery Smoker Chronic LBP LON TODAY History of Present Illness History of Present Illness Ms Sidhu is a pleasant 62 yo F w/ PMHx chronic LBP who p/w intractable nausea and vomiting with dizziness to [facility] ED overnight. Over the past 2 days she had become progressively more dizzy, lost her balance frequently and began with 8-20 episodes of emesis that was not improved with laying down or medications at home. She went to ED and after multiple, 3, doses of benadryl and 3 of compazine she finally felt improved. 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 She was transferred here for further treatment. Currently her dizziness is only present when turning to the right. Nausea resolved. On ROS she has a complaint she did not mention on ROS on admission, she has been losing vision in her right eye occasionally over the past 6 weeks or so and has been seen by ophtho, recommended to have retinal photography. A/P: Intractable nausea and vomiting - possibly 2/2 vertigo. She has no meningeal signs and no leukocytosis, unlikely to have meningitis complications from her epidural. Compazine, zofran IV for now. Right eye vision loss - this history if concerning for retinal vascular thrombosis, will d/w neuro if this should be investigated Dizziness - with loss of balance, sounds to be vertigo. Negative [employer] with PT 11/3. She had recent MRI not available, but concerning right carotid body mass may or may not be the culprit. She does not wish for repeat MRI. Appreciate neuro consult. Cont valium and meclizine prn. Check BMP, TSH. 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 No sign of CVA. She currently does not wish for a repeat MRI Smoker - quit 1 week ago using gum. She will request nicotine patch as I have offered Chronic LBP - s/p LESI 4 days ago, feels improved currently on tylenol and occasional ibuprofen. Will monitor FEN - General diet PPX - SCDs FULL CODE Inpatient for intractable nausea, vomiting, inability to walk and carotid body mass will need at least 2 midnights of inpatient care. Vitals Vitals Vital Signs Date Time Temp Pulse Resp B/P (MAP) Pulse Ox O2 Delivery O2 Flow Rate FiO2 12/29/17 10:44 81 129/75 (93) 12/29/17 10:33 98.0 16 97 Room Air 98.0 Physical Exam General: Alert, Oriented X3, Cooperative, No acute distress Heart: Regular rate (SR without ectopies), Normal S1, Normal S2, No murmurs Lungs: Clear Abdomen: Soft, No tenderness Extremities: No cyanosis, No edema Skin: No breakdown, No significant lesion Labs LABS Laboratory Tests Test 12/29/17 05:20 White Blood Count 5.9 x10^3/uL (4.0-11.0) Red Blood Count 4.13 x10^6/uL (3.50-5.40) Hemoglobin 12.1 g/dL (12.0-15.5) Hematocrit 36.3 % (36.0-47.0) Mean Corpuscular Volume 88 fL (79-100) Mean Corpuscular Hemoglobin 29 pg (25-35) Mean Corpuscular Hemoglobin Concent 33 g/dL (31-37) Red Cell Distribution Width 14.3 % (11.5-14.5) Platelet Count 236 x10^3/uL (140-400) Neutrophils (%) (Auto) 44 % (31-73) Lymphocytes (%) (Auto) 46 % (24-48) Monocytes (%) (Auto) 8 % (0-9) Eosinophils (%) (Auto) 2 % (0-3) Basophils (%) (Auto) 1 % (0-3) Neutrophils # (Auto) 2.6 x10^3uL (1.8-7.7) Lymphocytes # (Auto) 2.7 x10^3/uL (1.0-4.8) Monocytes # (Auto) 0.4 x10^3/uL (0.0-1.1) Eosinophils # (Auto) 0.1 x10^3/uL (0.0-0.7) Basophils # (Auto) 0.0 x10^3/uL (0.0-0.2) Sodium Level 143 mmol/L (136-145) Potassium Level 4.0 mmol/L (3.5-5.1) Chloride Level 107 mmol/L (98-107) Carbon Dioxide Level 26 mmol/L (21-32) Anion Gap 10 (6-14) Blood Urea Nitrogen 12 mg/dL (7-20) Creatinine 0.8 mg/dL (0.6-1.0) Estimated GFR (Cockcroft-Gault) 88.2 Glucose Level 96 mg/dL (70-99) Calcium Level 8.9 mg/dL (8.5-10.1) Comment Review of Relevant I have reviewed the following items fanny (where applicable) has been applied. Labs Laboratory Tests Test 12/28/17 06:30 12/29/17 05:20 White Blood Count 8.0 x10^3/uL (4.0-11.0) 5.9 x10^3/uL (4.0-11.0) Red Blood Count 4.13 x10^6/uL (3.50-5.40) 4.13 x10^6/uL (3.50-5.40) Hemoglobin 12.3 g/dL (12.0-15.5) 12.1 g/dL (12.0-15.5) Hematocrit 36.6 % (36.0-47.0) 36.3 % (36.0-47.0) Mean Corpuscular Volume 89 fL (79-100) 88 fL (79-100) Mean Corpuscular Hemoglobin 30 pg (25-35) 29 pg (25-35) Mean Corpuscular Hemoglobin Concent 34 g/dL (31-37) 33 g/dL (31-37) Red Cell Distribution Width 14.2 % (11.5-14.5) 14.3 % (11.5-14.5) Platelet Count 242 x10^3/uL (140-400) 236 x10^3/uL (140-400) Neutrophils (%) (Auto) 43 % (31-73) 44 % (31-73) Lymphocytes (%) (Auto) 48 % (24-48) 46 % (24-48) Monocytes (%) (Auto) 8 % (0-9) 8 % (0-9) Eosinophils (%) (Auto) 1 % (0-3) 2 % (0-3) Basophils (%) (Auto) 1 % (0-3) 1 % (0-3) Neutrophils # (Auto) 3.4 x10^3uL (1.8-7.7) 2.6 x10^3uL (1.8-7.7) Lymphocytes # (Auto) 3.8 x10^3/uL (1.0-4.8) 2.7 x10^3/uL (1.0-4.8) Monocytes # (Auto) 0.6 x10^3/uL (0.0-1.1) 0.4 x10^3/uL (0.0-1.1) Eosinophils # (Auto) 0.1 x10^3/uL (0.0-0.7) 0.1 x10^3/uL (0.0-0.7) Basophils # (Auto) 0.1 x10^3/uL (0.0-0.2) 0.0 x10^3/uL (0.0-0.2) Sodium Level 143 mmol/L (136-145) Potassium Level 4.0 mmol/L (3.5-5.1) Chloride Level 107 mmol/L (98-107) Carbon Dioxide Level 26 mmol/L (21-32) Anion Gap 10 (6-14) Blood Urea Nitrogen 12 mg/dL (7-20) Creatinine 0.8 mg/dL (0.6-1.0) Estimated GFR (Cockcroft-Gault) 88.2 Glucose Level 96 mg/dL (70-99) Calcium Level 8.9 mg/dL (8.5-10.1) Laboratory Tests Test 12/29/17 05:20 White Blood Count 5.9 x10^3/uL (4.0-11.0) Red Blood Count 4.13 x10^6/uL (3.50-5.40) Hemoglobin 12.1 g/dL (12.0-15.5) Hematocrit 36.3 % (36.0-47.0) Mean Corpuscular Volume 88 fL (79-100) Mean Corpuscular Hemoglobin 29 pg (25-35) Mean Corpuscular Hemoglobin Concent 33 g/dL (31-37) Red Cell Distribution Width 14.3 % (11.5-14.5) Platelet Count 236 x10^3/uL (140-400) Neutrophils (%) (Auto) 44 % (31-73) Lymphocytes (%) (Auto) 46 % (24-48) Monocytes (%) (Auto) 8 % (0-9) Eosinophils (%) (Auto) 2 % (0-3) Basophils (%) (Auto) 1 % (0-3) Neutrophils # (Auto) 2.6 x10^3uL (1.8-7.7) Lymphocytes # (Auto) 2.7 x10^3/uL (1.0-4.8) Monocytes # (Auto) 0.4 x10^3/uL (0.0-1.1) Eosinophils # (Auto) 0.1 x10^3/uL (0.0-0.7) Basophils # (Auto) 0.0 x10^3/uL (0.0-0.2) Sodium Level 143 mmol/L (136-145) Potassium Level 4.0 mmol/L (3.5-5.1) Chloride Level 107 mmol/L (98-107) Carbon Dioxide Level 26 mmol/L (21-32) Anion Gap 10 (6-14) Blood Urea Nitrogen 12 mg/dL (7-20) Creatinine 0.8 mg/dL (0.6-1.0) Estimated GFR (Cockcroft-Gault) 88.2 Glucose Level 96 mg/dL (70-99) Calcium Level 8.9 mg/dL (8.5-10.1) Medications Current Medications Ondansetron HCl (Zofran) 4 mg PRN Q4HRS PRN IV NAUSEA/VOMITING; Start 12/27/17 at 06:15; Stop 12/27/17 at 10:01; Status DC Ibuprofen (Motrin) 400 mg PRN Q6HRS PRN PO INFLAMMATION Last administered on at 10:19; Start 12/27/17 at 06:15 Ringer's Solution 1,000 ml @ 75 mls/hr [id number] IV Last administered on at 23:50; Start 12/27/17 at 09:50; Stop 12/28/17 at 10:01; Status DC Ondansetron HCl (Zofran) 4 mg PRN Q6HRS PRN IV NAUSEA/VOMITING, 1ST CHOICE; Start 12/27/17 at 10:00 Prochlorperazine Edisylate (Compazine) 10 mg PRN Q6HRS PRN IV NAUSEA/VOMITING, 2ND CHOICE; Start 12/27/17 at 10:00 Acetaminophen (Tylenol) 650 mg PRN Q6HRS PRN PO Headaches, Temp > 101.5F; Start 12/27/17 at 10:00 Senna/Docusate Sodium (Senna Plus) 1 tab BID PO Last administered on 12/28/17at 21:29; Start 12/27/17 at 12:00 Lactulose (Lactulose) 20 gm PRN Q12HR PRN PO CONSTIPATION; Start 12/27/17 at 10 :00 Meclizine HCl (Antivert) 12.5 mg PRN Q6HRS PRN PO DIZZINESS; Start 12/27/17 at 10:00 Meclizine HCl (Antivert) 25 mg TID PO Last administered on 12/29/17at 09:10; Start 12/27/17 at 14:00 Diazepam (Valium) 2 mg TID PO Last administered on 12/29/17at 09:07; Start 12/27 at 14:00 Neomycin/ Polymyxin/ Hydrocortisone (Cortisporin Otic) 2 drop Q6HRS AU Last administered on 12/29/17at 06:00; Start 12/27/17 at 18:00 Nicotine (Nicoderm Cq 14mg) 1 patch PRN DAILY PRN TD SMOKING CESSATION; Start 12/27/17 at 19:15 Active Scripts Active Reported Ibuprofen 600 Mg Tablet 600 Mg PO PRN Q6HRS PRN Pepcid (Famotidine) 20 Mg Tablet 20 Mg PO HS Vitals/I & O Vital Sign - Last 24 Hours 12/28/17 12/28/17 12/28/17 12/29/17 15:30 19:55 23:00 03:00 Temp 98.2 98.6 98.3 97.8 98.2 98.6 98.3 97.8 Pulse 76 78 66 62 Resp 14 16 16 16 B/P (MAP) 130/67 (88) 137/77 (97) 114/89 (97) 107/65 (79) Pulse Ox 98 99 100 100 O2 Delivery Room Air Room Air Room Air Room Air 12/29/17 12/29/17 12/29/1712/29/18 07:05 07:40 10:33 10:41 Temp 97.9 98.0 97.9 98.0 Pulse 62 72 62 Resp 16 16 B/P (MAP) 133/76 (95) 136/77 (96) 106/58 (74) Pulse Ox 98 97 O2 Delivery Room Air Room Air Room Air 12/29/17 10:44 Pulse 81 B/P (MAP) 129/75 (93) Intake and Output 12/28/17 12/28/17 12/29/17 15:00 23:00 07:00 Intake Total 120 ml 900 ml 300 ml Balance 120 ml 900 ml 300 ml MILES AUSTIN MD Dec 29, 2017 12:08
--- NOTE | 2017-12-29 17:15 | PDOC ---
PROGRESS NOTES Subjective Subjective "I am waiting for my family because I'm going home." Objective Objective Vascular Surgery Follow Up: Patient seen in consultation by Dr. Walker yesterday for right carotid body tumor. Recommendation is to obtain cardiology clearance prior to discharge and return for resection at [facility]. The patient does not have any further questions. CV consultation and echo results reviewed. The patient was given a business card for Vascular Surgery. I will ensure records are sent to [facility] of the patient's testing done here. OK to discharge from a Vascular Surgery perspective and when deemed medically stable. Vital Signs Date Time Temp Pulse Resp B/P (MAP) Pulse Ox O2 Delivery O2 Flow Rate FiO2 12/29/17 14:36 Room Air 12/29/17 14:27 97.7 81 122/65 (84) 95 97.7 12/29/17 10:33 16 Intake and Output 12/29/17 07:00 Intake Total 1320 ml Balance 1320 ml Intake Oral 1320 ml # Voids 6 Comment Review of Relevant I have reviewed the following items fanny (where applicable) has been applied. Labs Laboratory Tests Test 12/28/17 06:30 12/29/17 05:20 White Blood Count 8.0 x10^3/uL (4.0-11.0) 5.9 x10^3/uL (4.0-11.0) Red Blood Count 4.13 x10^6/uL (3.50-5.40) 4.13 x10^6/uL (3.50-5.40) Hemoglobin 12.3 g/dL (12.0-15.5) 12.1 g/dL (12.0-15.5) Hematocrit 36.6 % (36.0-47.0) 36.3 % (36.0-47.0) Mean Corpuscular Volume 89 fL (79-100) 88 fL (79-100) Mean Corpuscular Hemoglobin 30 pg (25-35) 29 pg (25-35) Mean Corpuscular Hemoglobin Concent 34 g/dL (31-37) 33 g/dL (31-37) Red Cell Distribution Width 14.2 % (11.5-14.5) 14.3 % (11.5-14.5) Platelet Count 242 x10^3/uL (140-400) 236 x10^3/uL (140-400) Neutrophils (%) (Auto) 43 % (31-73) 44 % (31-73) Lymphocytes (%) (Auto) 48 % (24-48) 46 % (24-48) Monocytes (%) (Auto) 8 % (0-9) 8 % (0-9) Eosinophils (%) (Auto) 1 % (0-3) 2 % (0-3) Basophils (%) (Auto) 1 % (0-3) 1 % (0-3) Neutrophils # (Auto) 3.4 x10^3uL (1.8-7.7) 2.6 x10^3uL (1.8-7.7) Lymphocytes # (Auto) 3.8 x10^3/uL (1.0-4.8) 2.7 x10^3/uL (1.0-4.8) Monocytes # (Auto) 0.6 x10^3/uL (0.0-1.1) 0.4 x10^3/uL (0.0-1.1) Eosinophils # (Auto) 0.1 x10^3/uL (0.0-0.7) 0.1 x10^3/uL (0.0-0.7) Basophils # (Auto) 0.1 x10^3/uL (0.0-0.2) 0.0 x10^3/uL (0.0-0.2) Sodium Level 143 mmol/L (136-145) Potassium Level 4.0 mmol/L (3.5-5.1) Chloride Level 107 mmol/L (98-107) Carbon Dioxide Level 26 mmol/L (21-32) Anion Gap 10 (6-14) Blood Urea Nitrogen 12 mg/dL (7-20) Creatinine 0.8 mg/dL (0.6-1.0) Estimated GFR (Cockcroft-Gault) 88.2 Glucose Level 96 mg/dL (70-99) Calcium Level 8.9 mg/dL (8.5-10.1) Laboratory Tests Test 12/29/17 05:20 White Blood Count 5.9 x10^3/uL (4.0-11.0) Red Blood Count 4.13 x10^6/uL (3.50-5.40) Hemoglobin 12.1 g/dL (12.0-15.5) Hematocrit 36.3 % (36.0-47.0) Mean Corpuscular Volume 88 fL (79-100) Mean Corpuscular Hemoglobin 29 pg (25-35) Mean Corpuscular Hemoglobin Concent 33 g/dL (31-37) Red Cell Distribution Width 14.3 % (11.5-14.5) Platelet Count 236 x10^3/uL (140-400) Neutrophils (%) (Auto) 44 % (31-73) Lymphocytes (%) (Auto) 46 % (24-48) Monocytes (%) (Auto) 8 % (0-9) Eosinophils (%) (Auto) 2 % (0-3) Basophils (%) (Auto) 1 % (0-3) Neutrophils # (Auto) 2.6 x10^3uL (1.8-7.7) Lymphocytes # (Auto) 2.7 x10^3/uL (1.0-4.8) Monocytes # (Auto) 0.4 x10^3/uL (0.0-1.1) Eosinophils # (Auto) 0.1 x10^3/uL (0.0-0.7) Basophils # (Auto) 0.0 x10^3/uL (0.0-0.2) Sodium Level 143 mmol/L (136-145) Potassium Level 4.0 mmol/L (3.5-5.1) Chloride Level 107 mmol/L (98-107) Carbon Dioxide Level 26 mmol/L (21-32) Anion Gap 10 (6-14) Blood Urea Nitrogen 12 mg/dL (7-20) Creatinine 0.8 mg/dL (0.6-1.0) Estimated GFR (Cockcroft-Gault) 88.2 Glucose Level 96 mg/dL (70-99) Calcium Level 8.9 mg/dL (8.5-10.1) Medications Current Medications Ondansetron HCl (Zofran) 4 mg PRN Q4HRS PRN IV NAUSEA/VOMITING; Start 12/27/17 at 06:15; Stop 12/27/17 at 10:01; Status DC Ibuprofen (Motrin) 400 mg PRN Q6HRS PRN PO INFLAMMATION Last administered on at 10:19; Start 12/27/17 at 06:15 Ringer's Solution 1,000 ml @ 75 mls/hr [id number] IV Last administered on at 23:50; Start 12/27/17 at 09:50; Stop 12/28/17 at 10:01; Status DC Ondansetron HCl (Zofran) 4 mg PRN Q6HRS PRN IV NAUSEA/VOMITING, 1ST CHOICE; Start 12/27/17 at 10:00 Prochlorperazine Edisylate (Compazine) 10 mg PRN Q6HRS PRN IV NAUSEA/VOMITING, 2ND CHOICE; Start 12/27/17 at 10:00 Acetaminophen (Tylenol) 650 mg PRN Q6HRS PRN PO Headaches, Temp > 101.5F; Start 12/27/17 at 10:00 Senna/Docusate Sodium (Senna Plus) 1 tab BID PO Last administered on 12/28/17at 21:29; Start 12/27/17 at 12:00 Lactulose (Lactulose) 20 gm PRN Q12HR PRN PO CONSTIPATION; Start 12/27/17 at 10 :00 Meclizine HCl (Antivert) 12.5 mg PRN Q6HRS PRN PO DIZZINESS; Start 12/27/17 at 10:00 Meclizine HCl (Antivert) 25 mg TID PO Last administered on 12/29/17at 14:12; Start 12/27/17 at 14:00 Diazepam (Valium) 2 mg TID PO Last administered on 12/29/17at 14:11; Start 12/27 at 14:00 Neomycin/ Polymyxin/ Hydrocortisone (Cortisporin Otic) 2 drop Q6HRS AU Last administered on 12/29/17at 12:00; Start 12/27/17 at 18:00 Nicotine (Nicoderm Cq 14mg) 1 patch PRN DAILY PRN TD SMOKING CESSATION; Start 12/27/17 at 19:15 Active Scripts Active Reported Ibuprofen 600 Mg Tablet 600 Mg PO PRN Q6HRS PRN Pepcid (Famotidine) 20 Mg Tablet 20 Mg PO HS Vitals/I & O Vital Sign - Last 24 Hours 12/28/17 12/28/17 12/29/17 12/29/17 19:55 23:00 03:00 07:05 Temp 98.6 98.3 97.8 97.9 98.6 98.3 97.8 97.9 Pulse 78 66 62 62 Resp 16 16 16 16 B/P (MAP) 137/77 (97) 114/89 (97) 107/65 (79) 133/76 (95) Pulse Ox 99 100 100 98 O2 Delivery Room Air Room Air Room Air Room Air 12/29/17 12/29/17 12/29/17 12/29/17 07:40 10:33 10:41 10:44 Temp 98.0 98.0 Pulse 72 62 81 Resp 16 B/P (MAP) 136/77 (96) 106/58 (74) 129/75 (93) Pulse Ox 97 O2 Delivery Room Air Room Air 12/29/17 12/29/17 14:27 14:36 Temp 97.7 97.7 Pulse 81 B/P (MAP) 122/65 (84) Pulse Ox 95 O2 Delivery Room Air Room Air Intake and Output 12/28/17 12/28/17 12/29/17 15:00 23:00 07:00 Intake Total 120 ml 900 ml 300 ml Balance 120 ml 900 ml 300 ml JASVIR CARROLL APRN Dec 29, 2017 17:15
--- NOTE | 2017-12-29 18:43 | PDOC ---
PROGRESS NOTES Assessment Assessment IMPRESSION: Vertigo. Dizziness. Right carotid A body tumor. RECOMMENDATIONS/PLAN: Meclizine 25 mg tid. Benzo. Vestibular OT/PT. Consulted Vascular Surgery. Lab: see orders. Past Medical History Cardiovascular: No pertinent hx Pulmonary: No pertinent hx GI: No pertinent hx Heme/Onc: No pertinent hx Hepatobiliary: No pertinent hx Psych: No pertinent hx Musculoskeletal: low back pain Rheumatologic: No pertinent hx Infectious disease: No pertinent hx ENT: No pertinent hx Renal/: No pertinent hx Endocrine: No pertinent hx Dermatology: No pertinent hx Past Surgical History LESI lumbar spine. Family History HLD, Hypertension Social History Smoke: Quit (1 week ago) ALCOHOL: none Drugs: None ALLERGY: Reviewed. MEDICATIONS: Refer to [facility] REVIEW OF SYSTEMS: Constitutional: No malnutrition, weight loss, cachexia. Head: No traumatic brain or head injury. Skin: No edema, or rash. Ear: No infection. Eyes: No vision loss, or diplopia. Nose: No bleeding or purulent discharges. Hearing: No hearing decrease. Neck: No injury. Breast: No history of cancer, masses, or discharges. Cardiac: No [place], arrhythmia Pulmonary: No pneumonia. GI: No GI Ulcer, GI bleeding Urinary/genital: UTI. Endocrine: No cousin face, craniofacial dysmorphism, polydactyly. Skeletomuscular: No muscular atrophy, deformity. Neurological: see HP. Psychiatric: Denies drug use/abuse. Otherwise, not [id number] review of systems. PHYSICAL EXAMINATION: General appearance in subacute distress. HEENT: Normocephalic and nontraumatic. Eyes, nose, ears, and throat are unremarkable. Neck is supple. No lymphadenopathy. No bruits are heard over the carotid artery. No Crepitus. Cardiovascular: S1, S2, regular rate and rhythm. Pulmonary: Clear to auscultation bilaterally. Abdomen: Bowel sounds are positive. Abdomen is soft, nontender, and nondistended. Extremities: No rash, lesions, or edema. No restriction of range of motion NEUROLOGICAL EXAMINATION: Alert. Oriented to time, place and person. PERRL. EOMI. A few bits of horizontal nystagmus noted. CN: no focal findings. Muscle tone: within normal. Muscle strength: 5 DTR: 2 Plantar reflex: Flexor response bilaterally Gait: not examined in bed. Sensory exam: no abnormal findings. No cerebellar signs elicited. F-T-N test accurate. Objective Objective Vital Signs Date Time Temp Pulse Resp B/P (MAP) Pulse Ox O2 Delivery O2 Flow Rate FiO2 12/29/17 14:36 Room Air 12/29/17 14:27 97.7 81 122/65 (84) 95 97.7 12/29/17 10:33 16 Intake and Output 12/29/17 07:00 Intake Total 1320 ml Balance 1320 ml Intake Oral 1320 ml # Voids 6 Vitals Signs Vitals VS - Last 72 Hours, by Label Date Time Temp Pulse Resp B/P (MAP) Pulse Ox O2 Delivery O2 Flow Rate FiO2 12/29/17 14:36 Room Air 12/29/17 14:27 97.7 81 122/65 (84) 95 Room Air 97.7 12/29/17 10:44 81 129/75 (93) 12/29/17 10:41 62 106/58 (74) 12/29/17 10:33 98.0 72 16 136/77 (96) 97 Room Air 98.0 12/29/17 07:40 Room Air 12/29/17 07:05 97.9 62 16 133/76 (95) 98 Room Air 97.9 12/29/17 03:00 97.8 62 16 107/65 (79) 100 Room Air 97.8 12/28/17 23:00 98.3 66 16 114/89 (97) 100 Room Air 98.3 12/28/17 19:55 98.6 78 16 137/77 (97) 99 Room Air 98.6 12/28/17 15:30 98.2 76 14 130/67 (88) 98 Room Air 98.2 12/28/17 11:14 98.8 73 16 127/70 (89) 98 Room Air 98.8 12/28/17 07:34 98.2 69 16 123/72 (89) 100 Room Air 98.2 Laboratory Laboratory Laboratory Tests Test 12/29/17 05:20 White Blood Count 5.9 x10^3/uL (4.0-11.0) Red Blood Count 4.13 x10^6/uL (3.50-5.40) Hemoglobin 12.1 g/dL (12.0-15.5) Hematocrit 36.3 % (36.0-47.0) Mean Corpuscular Volume 88 fL (79-100) Mean Corpuscular Hemoglobin 29 pg (25-35) Mean Corpuscular Hemoglobin Concent 33 g/dL (31-37) Red Cell Distribution Width 14.3 % (11.5-14.5) Platelet Count 236 x10^3/uL (140-400) Neutrophils (%) (Auto) 44 % (31-73) Lymphocytes (%) (Auto) 46 % (24-48) Monocytes (%) (Auto) 8 % (0-9) Eosinophils (%) (Auto) 2 % (0-3) Basophils (%) (Auto) 1 % (0-3) Neutrophils # (Auto) 2.6 x10^3uL (1.8-7.7) Lymphocytes # (Auto) 2.7 x10^3/uL (1.0-4.8) Monocytes # (Auto) 0.4 x10^3/uL (0.0-1.1) Eosinophils # (Auto) 0.1 x10^3/uL (0.0-0.7) Basophils # (Auto) 0.0 x10^3/uL (0.0-0.2) Sodium Level 143 mmol/L (136-145) Potassium Level 4.0 mmol/L (3.5-5.1) Chloride Level 107 mmol/L (98-107) Carbon Dioxide Level 26 mmol/L (21-32) Anion Gap 10 (6-14) Blood Urea Nitrogen 12 mg/dL (7-20) Creatinine 0.8 mg/dL (0.6-1.0) Estimated GFR (Cockcroft-Gault) 88.2 Glucose Level 96 mg/dL (70-99) Calcium Level 8.9 mg/dL (8.5-10.1) Comment Review of Relevant I have reviewed the following items fanny (where applicable) has been applied. KIRSTEN ANTHONY MD Dec 29, 2017 18:43
[2017-12-29 22:08] LABS: BARBITURATES NEG (NEG); BENZODIAZEPINES NEG (NEG); CANNABINOIDS NEG (NEG); COCAINE NEG (NEG); METHADONE NEG (NEG); OPIATES NEG (NEG); PHENCYCLIDINE NEG (NEG)
[2017-12-29 22:09] LABS: AMPHETAMINE/METHAMPHETAMINE NEG (NEG)
[2017-12-30 03:00] VITALS: BP 124/71
[2017-12-30] MEDS: NEOMYCIN/POLYMYXIN/HC OTIC SUSPENSION 10ML BOTTLE. AU SCH ×2 (05:53)
[2017-12-30 07:18] VITALS: BP 128/68
[2017-12-30] MEDS: diazePAM 2 MG TABLET PO SCH (09:00)
[2017-12-30] MEDS: SENNOSIDES/DOCUSATE 8.6/50MG TABLET. PO SCH (09:00)
--- NOTE | 2017-12-30 09:07 | PDOC ---
PROGRESS NOTES Chief Complaint Chief Complaint IMPRESSION Intractable nausea and vomiting Dizziness Right carotid body mass Recommended that the mass be excised. Given her smoking history, cardiology HAS her in evaluation for occult coronary artery disease and in preparation for vascular surgery Smoker Chronic LBP LON ok she wants MRI HEAD TODAY BEFORE D/C History of Present Illness History of Present Illness Ms Sidhu is a pleasant 62 yo F w/ PMHx chronic LBP who p/w intractable nausea and vomiting with dizziness to [facility] ED overnight. Over the past 2 days she had become progressively more dizzy, lost her balance frequently and began with 8-20 episodes of emesis that was not improved with laying down or medications at home. She went to ED and after multiple, 3, doses of benadryl and 3 of compazine she finally felt improved. 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 She was transferred here for further treatment. Currently her dizziness is only present when turning to the right. Nausea resolved. On ROS she has a complaint she did not mention on ROS on admission, she has been losing vision in her right eye occasionally over the past 6 weeks or so and has been seen by ophtho, recommended to have retinal photography. A/P: Intractable nausea and vomiting - possibly 2/2 vertigo. She has no meningeal signs and no leukocytosis, unlikely to have meningitis complications from her epidural. Compazine, zofran IV for now. Right eye vision loss - this history if concerning for retinal vascular thrombosis, will d/w neuro if this should be investigated Dizziness - with loss of balance, sounds to be vertigo. Negative Randolph-Halpike with PT 11/3. She had recent MRI not available, but concerning right carotid body mass may or may not be the culprit. She does not wish for repeat MRI. Appreciate neuro consult. Cont valium and meclizine prn. Check BMP, TSH. 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 No sign of CVA. She currently does not wish for a repeat MRI Smoker - quit 1 week ago using gum. She will request nicotine patch as I have offered Chronic LBP - s/p LESI 4 days ago, feels improved currently on tylenol and occasional ibuprofen. Will monitor FEN - General diet PPX - SCDs FULL CODE Inpatient for intractable nausea, vomiting, inability to walk and carotid body mass will need at least 2 midnights of inpatient care. Vitals Vitals Vital Signs Date Time Temp Pulse Resp B/P (MAP) Pulse Ox O2 Delivery O2 Flow Rate FiO2 12/30/17 08:00 Room Air 12/30/17 07:18 98.2 61 18 128/68 (88) 99 98.2 Physical Exam General: Alert, Oriented X3, Cooperative, No acute distress Heart: Regular rate (SR without ectopies), Normal S1, Normal S2, No murmurs Lungs: Clear Abdomen: Normal bowel sounds, Soft, No tenderness Extremities: No clubbing, No cyanosis, No edema Skin: No breakdown, No significant lesion Labs LABS Laboratory Tests Test 12/29/17 20:45 Urine Opiates Screen Neg (NEG) Urine Methadone Screen Neg (NEG) Urine Barbiturates Neg (NEG) Urine Phencyclidine Screen Neg (NEG) Urine Amphetamine/Methamphetamine Neg (NEG) Urine Benzodiazepines Screen Neg (NEG) Urine Cocaine Screen Neg (NEG) Urine Cannabinoids Screen Neg (NEG) Urine Ethyl Alcohol Neg (NEG) Comment Review of Relevant I have reviewed the following items fanny (where applicable) has been applied. Labs Laboratory Tests Test 12/29/17 05:20 12/29/17 20:45 White Blood Count 5.9 x10^3/uL (4.0-11.0) Red Blood Count 4.13 x10^6/uL (3.50-5.40) Hemoglobin 12.1 g/dL (12.0-15.5) Hematocrit 36.3 % (36.0-47.0) Mean Corpuscular Volume 88 fL (79-100) Mean Corpuscular Hemoglobin 29 pg (25-35) Mean Corpuscular Hemoglobin Concent 33 g/dL (31-37) Red Cell Distribution Width 14.3 % (11.5-14.5) Platelet Count 236 x10^3/uL (140-400) Neutrophils (%) (Auto) 44 % (31-73) Lymphocytes (%) (Auto) 46 % (24-48) Monocytes (%) (Auto) 8 % (0-9) Eosinophils (%) (Auto) 2 % (0-3) Basophils (%) (Auto) 1 % (0-3) Neutrophils # (Auto) 2.6 x10^3uL (1.8-7.7) Lymphocytes # (Auto) 2.7 x10^3/uL (1.0-4.8) Monocytes # (Auto) 0.4 x10^3/uL (0.0-1.1) Eosinophils # (Auto) 0.1 x10^3/uL (0.0-0.7) Basophils # (Auto) 0.0 x10^3/uL (0.0-0.2) Sodium Level 143 mmol/L (136-145) Potassium Level 4.0 mmol/L (3.5-5.1) Chloride Level 107 mmol/L (98-107) Carbon Dioxide Level 26 mmol/L (21-32) Anion Gap 10 (6-14) Blood Urea Nitrogen 12 mg/dL (7-20) Creatinine 0.8 mg/dL (0.6-1.0) Estimated GFR (Cockcroft-Gault) 88.2 Glucose Level 96 mg/dL (70-99) Calcium Level 8.9 mg/dL (8.5-10.1) Urine Opiates Screen Neg (NEG) Urine Methadone Screen Neg (NEG) Urine Barbiturates Neg (NEG) Urine Phencyclidine Screen Neg (NEG) Urine Amphetamine/Methamphetamine Neg (NEG) Urine Benzodiazepines Screen Neg (NEG) Urine Cocaine Screen Neg (NEG) Urine Cannabinoids Screen Neg (NEG) Urine Ethyl Alcohol Neg (NEG) Laboratory Tests Test 12/29/17 20:45 Urine Opiates Screen Neg (NEG) Urine Methadone Screen Neg (NEG) Urine Barbiturates Neg (NEG) Urine Phencyclidine Screen Neg (NEG) Urine Amphetamine/Methamphetamine Neg (NEG) Urine Benzodiazepines Screen Neg (NEG) Urine Cocaine Screen Neg (NEG) Urine Cannabinoids Screen Neg (NEG) Urine Ethyl Alcohol Neg (NEG) Medications Current Medications Ondansetron HCl (Zofran) 4 mg PRN Q4HRS PRN IV NAUSEA/VOMITING; Start 12/27/17 at 06:15; Stop 12/27/17 at 10:01; Status DC Ibuprofen (Motrin) 400 mg PRN Q6HRS PRN PO INFLAMMATION Last administered on at 10:19; Start 12/27/17 at 06:15 Ringer's Solution 1,000 ml @ 75 mls/hr [id number] IV Last administered on at 23:50; Start 12/27/17 at 09:50; Stop 12/28/17 at 10:01; Status DC Ondansetron HCl (Zofran) 4 mg PRN Q6HRS PRN IV NAUSEA/VOMITING, 1ST CHOICE; Start 12/27/17 at 10:00 Prochlorperazine Edisylate (Compazine) 10 mg PRN Q6HRS PRN IV NAUSEA/VOMITING, 2ND CHOICE; Start 12/27/17 at 10:00 Acetaminophen (Tylenol) 650 mg PRN Q6HRS PRN PO Headaches, Temp > 101.5F; Start 12/27/17 at 10:00 Senna/Docusate Sodium (Senna Plus) 1 tab BID PO Last administered on 12/28/17at 21:29; Start 12/27/17 at 12:00 Lactulose (Lactulose) 20 gm PRN Q12HR PRN PO CONSTIPATION; Start 12/27/17 at 10 :00 Meclizine HCl (Antivert) 12.5 mg PRN Q6HRS PRN PO DIZZINESS; Start 12/27/17 at 10:00 Meclizine HCl (Antivert) 25 mg TID PO Last administered on 12/29/17at 20:57; Start 12/27/17 at 14:00 Diazepam (Valium) 2 mg TID PO Last administered on 12/29/17at 14:11; Start 12/27 at 14:00 Neomycin/ Polymyxin/ Hydrocortisone (Cortisporin Otic) 2 drop Q6HRS AU Last administered on 12/30/17at 05:53; Start 12/27/17 at 18:00 Nicotine (Nicoderm Cq 14mg) 1 patch PRN DAILY PRN TD SMOKING CESSATION; Start 12/27/17 at 19:15 Active Scripts Active Reported Ibuprofen 600 Mg Tablet 600 Mg PO PRN Q6HRS PRN Pepcid (Famotidine) 20 Mg Tablet 20 Mg PO HS Vitals/I & O Vital Sign - Last 24 Hours 12/29/17 12/29/17 12/29/17 12/29/17 10:33 10:41 10:44 14:27 Temp 98.0 97.7 98.0 97.7 Pulse 72 62 81 81 Resp 16 B/P (MAP) 136/77 (96) 106/58 (74) 129/75 (93) 122/65 (84) Pulse Ox 97 95 O2 Delivery Room Air Room Air 12/29/17 12/29/17 12/29/17 12/29/17 14:36 19:00 20:00 22:45 Temp 97.9 98.4 97.9 98.4 Pulse 74 64 Resp 16 20 B/P (MAP) 120/74 (89) 127/67 (87) Pulse Ox 98 98 O2 Delivery Room Air Room Air Room Air Room Air 12/30/17 12/30/17 12/30/17 03:00 07:18 08:00 Temp 98.2 98.2 98.2 98.2 Pulse 71 61 Resp 18 B/P (MAP) 124/71 (88) 128/68 (88) Pulse Ox 99 99 O2 Delivery Room Air Room Air Room Air Intake and Output 12/29/17 12/29/17 12/30/17 15:00 23:00 07:00 Intake Total 600 ml 1300 ml 400 ml Output Total 300 ml Balance 600 ml 1000 ml 400 ml MILES AUSTIN MD Dec 30, 2017 09:06
[2017-12-30] MEDS: MECLIZINE HCL 12.5 MG TABLET. PO SCH (09:14)
[2017-12-30 11:09] VITALS: BP 120/66
[2017-12-30] MEDS ORDERED: GADOBUTROL 7.5 MMOL/7.5 ML VIAL IV ONE (11:30)
--- NOTE | 2017-12-30 11:54 | PDOC3 ---
Discharge Summary Date of Admission: Dec 27, 2017 Date of Discharge: Dec 30, 2017 Follow-Up: 3-5 days Admitting Diagnosis comment: Chief Complaint Chief Complaint IMPRESSION Intractable nausea and vomiting Dizziness Right carotid body mass Recommended that the mass be excised. Given her smoking history, cardiology HAS her in evaluation for occult coronary artery disease and in preparation for vascular surgery Smoker Chronic LBP LON ok she wants MRI HEAD TODAY BEFORE D/C History of Present Illness History of Present Illness Ms Sidhu is a pleasant 62 yo F w/ PMHx chronic LBP who p/w intractable nausea and vomiting with dizziness to [facility] ED overnight. Over the past 2 days she had become progressively more dizzy, lost her balance frequently and began with 8-20 episodes of emesis that was not improved with laying down or medications at home. She went to ED and after multiple, 3, doses of benadryl and 3 of compazine she finally felt improved. 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 She was transferred here for further treatment. Currently her dizziness is only present when turning to the right. Nausea resolved. On ROS she has a complaint she did not mention on ROS on admission, she has been losing vision in her right eye occasionally over the past 6 weeks or so and has been seen by ophtho, recommended to have retinal photography. A/P: Intractable nausea and vomiting - possibly 2/2 vertigo. She has no meningeal signs and no leukocytosis, unlikely to have meningitis complications from her epidural. Compazine, zofran IV for now. Right eye vision loss - this history if concerning for retinal vascular thrombosis, will d/w neuro if this should be investigated Dizziness - with loss of balance, sounds to be vertigo. Negative Elba-Halpike with PT 11/3. She had recent MRI not available, but concerning right carotid body mass may or may not be the culprit. She does not wish for repeat MRI. Appreciate neuro consult. Cont valium and meclizine prn. Check BMP, TSH. 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 No sign of CVA. She currently does not wish for a repeat MRI Smoker - quit 1 week ago using gum. She will request nicotine patch as I have offered Chronic LBP - s/p LESI 4 days ago, feels improved currently on tylenol and occasional ibuprofen. Will monitor FEN - General diet PPX - SCDs FULL CODE Inpatient for intractable nausea, vomiting, inability to walk and carotid body mass will need at least 2 midnights of inpatient care. MRI HEAD TODAY PER DR ANTHONY Vitals Vitals Vital Signs Date Time Temp Pulse Resp B/P (MAP) Pulse Ox O2 Delivery O2 Flow Rate FiO2 12/30/17 08:00 Room Air 12/30/17 07:18 98.2 61 18 128/68 (88) 99 98.2 Physical Exam General: Alert, Oriented X3, Cooperative, No acute distress Heart: Regular rate (SR without ectopies), Normal S1, Normal S2, No murmurs Lungs: Clear Abdomen: Normal bowel sounds, Soft, No tenderness Extremities: No clubbing, No cyanosis, No edema Skin: No breakdown, No significant lesion Brief Hospital Course Ms. Sidhu is a 62 old [sex] who presented with [ CAROTID MASS] CONDITION AT DISCHARGE: Stable Discharge Medications Current Medications Ondansetron HCl (Zofran) 4 mg PRN Q4HRS PRN IV NAUSEA/VOMITING; Start 12/27/17 at 06:15; Stop 12/27/17 at 10:01; Status DC Ibuprofen (Motrin) 400 mg PRN Q6HRS PRN PO INFLAMMATION Last administered on at 10:19; Start 12/27/17 at 06:15 Ringer's Solution 1,000 ml @ 75 mls/hr [id number] IV Last administered on at 23:50; Start 12/27/17 at 09:50; Stop 12/28/17 at 10:01; Status DC Ondansetron HCl (Zofran) 4 mg PRN Q6HRS PRN IV NAUSEA/VOMITING, 1ST CHOICE; Start 12/27/17 at 10:00 Prochlorperazine Edisylate (Compazine) 10 mg PRN Q6HRS PRN IV NAUSEA/VOMITING, 2ND CHOICE; Start 12/27/17 at 10:00 Acetaminophen (Tylenol) 650 mg PRN Q6HRS PRN PO Headaches, Temp > 101.5F; Start 12/27/17 at 10:00 Senna/Docusate Sodium (Senna Plus) 1 tab BID PO Last administered on 12/28/17at 21:29; Start 12/27/17 at 12:00 Lactulose (Lactulose) 20 gm PRN Q12HR PRN PO CONSTIPATION; Start 12/27/17 at 10 :00 Meclizine HCl (Antivert) 12.5 mg PRN Q6HRS PRN PO DIZZINESS; Start 12/27/17 at 10:00 Meclizine HCl (Antivert) 25 mg TID PO Last administered on 12/30/17at 09:14; Start 12/27/17 at 14:00 Diazepam (Valium) 2 mg TID PO Last administered on 12/29/17at 14:11; Start 12/27 at 14:00 Neomycin/ Polymyxin/ Hydrocortisone (Cortisporin Otic) 2 drop Q6HRS AU Last administered on 12/30/17at 05:53; Start 12/27/17 at 18:00 Nicotine (Nicoderm Cq 14mg) 1 patch PRN DAILY PRN TD SMOKING CESSATION; Start 12/27/17 at 19:15 Gadobutrol (Gadavist) 7.5 mmol 1X ONCE IV Last administered on 12/30/17at 11:45 ; Start 12/30/17 at 11:30; Stop 12/30/17 at 11:31; Status DC Active Scripts Active Reported Ibuprofen 600 Mg Tablet 600 Mg PO PRN Q6HRS PRN Pepcid (Famotidine) 20 Mg Tablet 20 Mg PO HS Vital Signs Vital Signs Date Time Temp Pulse Resp B/P (MAP) Pulse Ox O2 Delivery O2 Flow Rate FiO2 12/30/17 11:09 98.2 61 120/66 (84) 99 Room Air 98.2 12/30/17 07:18 18 Labs Laboratory Tests Test 12/29/17 05:20 12/29/17 20:45 White Blood Count 5.9 x10^3/uL (4.0-11.0) Red Blood Count 4.13 x10^6/uL (3.50-5.40) Hemoglobin 12.1 g/dL (12.0-15.5) Hematocrit 36.3 % (36.0-47.0) Mean Corpuscular Volume 88 fL (79-100) Mean Corpuscular Hemoglobin 29 pg (25-35) Mean Corpuscular Hemoglobin Concent 33 g/dL (31-37) Red Cell Distribution Width 14.3 % (11.5-14.5) Platelet Count 236 x10^3/uL (140-400) Neutrophils (%) (Auto) 44 % (31-73) Lymphocytes (%) (Auto) 46 % (24-48) Monocytes (%) (Auto) 8 % (0-9) Eosinophils (%) (Auto) 2 % (0-3) Basophils (%) (Auto) 1 % (0-3) Neutrophils # (Auto) 2.6 x10^3uL (1.8-7.7) Lymphocytes # (Auto) 2.7 x10^3/uL (1.0-4.8) Monocytes # (Auto) 0.4 x10^3/uL (0.0-1.1) Eosinophils # (Auto) 0.1 x10^3/uL (0.0-0.7) Basophils # (Auto) 0.0 x10^3/uL (0.0-0.2) Sodium Level 143 mmol/L (136-145) Potassium Level 4.0 mmol/L (3.5-5.1) Chloride Level 107 mmol/L (98-107) Carbon Dioxide Level 26 mmol/L (21-32) Anion Gap 10 (6-14) Blood Urea Nitrogen 12 mg/dL (7-20) Creatinine 0.8 mg/dL (0.6-1.0) Estimated GFR (Cockcroft-Gault) 88.2 Glucose Level 96 mg/dL (70-99) Calcium Level 8.9 mg/dL (8.5-10.1) Urine Opiates Screen Neg (NEG) Urine Methadone Screen Neg (NEG) Urine Barbiturates Neg (NEG) Urine Phencyclidine Screen Neg (NEG) Urine Amphetamine/Methamphetamine Neg (NEG) Urine Benzodiazepines Screen Neg (NEG) Urine Cocaine Screen Neg (NEG) Urine Cannabinoids Screen Neg (NEG) Urine Ethyl Alcohol Neg (NEG) Laboratory Tests Test 12/29/17 20:45 Urine Opiates Screen Neg (NEG) Urine Methadone Screen Neg (NEG) Urine Barbiturates Neg (NEG) Urine Phencyclidine Screen Neg (NEG) Urine Amphetamine/Methamphetamine Neg (NEG) Urine Benzodiazepines Screen Neg (NEG) Urine Cocaine Screen Neg (NEG) Urine Cannabinoids Screen Neg (NEG) Urine Ethyl Alcohol Neg (NEG) Allergies Allergies Coded Allergies Type Severity Reaction Last Updated Verified No Known Allergies Allergy Unknown 12/27/17 Yes Disposition/Orders: D/C to Home Patient Instructions D/C PLANNING 35 MIN MILES AUSTIN MD Dec 30, 2017 11:54
--- NOTE | 2017-12-30 12:16 | RAD ---
MRI of the Brain without and with Contrast 12/30/2017 Clinical History: Dizziness for one week. Ataxia. Technique: Unenhanced T1-weighted sagittal and axial and FLAIR, T2-weighted, gradient echo and diffusion-weighted axial images of the brain were obtained. After the intravenous administration of 7.5 cc of Gadavist, enhanced T1-weighted axial, sagittal and coronal images of the brain were obtained. Findings: Comparison is made to the patient's CT scan of the head dated 12/26/2017. There is generalized parenchymal atrophy. Patchy and small scattered areas of abnormally increased signal intensity are seen within the periventricular and subcortical white matter of both cerebral hemispheres on the FLAIR and T2-weighted images consistent with areas of minimal small vessel ischemic disease. No acute parenchymal abnormality is seen. No abnormal area of contrast enhancement is noted. No extra-axial fluid collection is seen. There is no MRI evidence of acute ischemia/infarction. Mild mucosal thickening is seen scattered throughout the paranasal sinuses. There are small bilateral mastoid effusions. The posterior aspect of the globes are elongated, unchanged. Normal flow voids are seen within the major vascular structures surrounding the brain parenchyma. 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 Impression: No acute parenchymal abnormality is seen. Electronically signed by: Mane Madrigal MD (12/30/2017 12:13 PM) [id number]
[2017-12-30] MEDS ORDERED: MECL-57 PO (13:17)
--- NOTE | 2017-12-30 14:20 | DISCH ---
DISCHARGE INSTRUCTIONS Condition on Discharge Condition on Discharge: Stable Activity After Discharge Activity Instructions for Disc: No restrictions Bathing Instructions: Shower-keep dressing dry Lifting Instructions after Dis: No heavy lifting, No pulling or pushing Exercise Instruction after Dis: Walk 10 min, 3 x per day Driving Instructions after Dis: Do not drive Weight Bearing Status after Di: No restrictions Diet after Discharge Diet after Discharge: Cardiac Checks after Discharge Checks after discharge: Check blood press - daily Contacting the DR. after DC Call your doctor for: If your condition worsens Follow-Up Follow Up With: PRIMARY IN ONE WEEK MILES AUSTIN MD Dec 30, 2017 14:20
--- NOTE | 2017-12-30 17:56 | PDOC ---
PROGRESS NOTES Assessment Assessment Vertigo. Dizziness. Right carotid A body tumor. No evidence of acute CVA this time. RECOMMENDATIONS/PLAN: Continue Meclizine 25 mg tid x 7 days. Vestibular OT/PT. Consulted Vascular Surgery. FU with PCP. FU with Vascular Surgery. FU with Neurology as needed. Past Medical History Cardiovascular: No pertinent hx Pulmonary: No pertinent hx GI: No pertinent hx Heme/Onc: No pertinent hx Hepatobiliary: No pertinent hx Psych: No pertinent hx Musculoskeletal: low back pain Rheumatologic: No pertinent hx Infectious disease: No pertinent hx ENT: No pertinent hx Renal/: No pertinent hx Endocrine: No pertinent hx Dermatology: No pertinent hx Past Surgical History LESI lumbar spine. Family History HLD, Hypertension Social History Smoke: Quit (1 week ago) ALCOHOL: none Drugs: None ALLERGY: Reviewed. MEDICATIONS: Refer to [facility] REVIEW OF SYSTEMS: Constitutional: No malnutrition, weight loss, cachexia. Head: No traumatic brain or head injury. Skin: No edema, or rash. Ear: No infection. Eyes: No vision loss, or diplopia. Nose: No bleeding or purulent discharges. Hearing: No hearing decrease. Neck: No injury. Breast: No history of cancer, masses, or discharges. Cardiac: No [place], arrhythmia Pulmonary: No pneumonia. GI: No GI Ulcer, GI bleeding Urinary/genital: UTI. Endocrine: No cousin face, craniofacial dysmorphism, polydactyly. Skeletomuscular: No muscular atrophy, deformity. Neurological: see HP. Psychiatric: Denies drug use/abuse. Otherwise, not [id number] review of systems. Patient was not in then room, so did chart rounding. Objective Objective Vital Signs Date Time Temp Pulse Resp B/P (MAP) Pulse Ox O2 Delivery O2 Flow Rate FiO2 12/30/17 11:09 98.2 61 120/66 (84) 99 Room Air 98.2 12/30/17 07:18 18 Intake and Output 12/30/17 07:00 Intake Total 2300 ml Output Total 300 ml Balance 2000 ml Intake Oral 2300 ml Output Urine Total 300 ml # Voids 9 Vitals Signs Vitals VS - Last 72 Hours, by Label Date Time Temp Pulse Resp B/P (MAP) Pulse Ox O2 Delivery O2 Flow Rate FiO2 12/30/17 11:09 98.2 61 120/66 (84) 99 Room Air 98.2 12/30/17 08:00 Room Air 11/6/18 07:18 98.2 61 18 128/68 (88) 99 Room Air 98.2 12/30/17 03:00 98.2 71 124/71 (88) 99 Room Air 98.2 12/29/17 22:45 98.4 64 20 127/67 (87) 98 Room Air 98.4 12/29/17 20:00 Room Air 12/29/17 19:00 97.9 74 16 120/74 (89) 98 Room Air 97.9 12/29/17 14:36 Room Air 12/29/17 14:27 97.7 81 122/65 (84) 95 Room Air 97.7 12/29/17 10:44 81 129/75 (93) 12/29/17 10:41 62 106/58 (74) 12/29/17 10:33 98.0 72 16 136/77 (96) 97 Room Air 98.0 12/29/17 07:40 Room Air 12/29/17 07:05 97.9 62 16 133/76 (95) 98 Room Air 97.9 Laboratory Laboratory Laboratory Tests Test 12/29/17 20:45 Urine Opiates Screen Neg (NEG) Urine Methadone Screen Neg (NEG) Urine Barbiturates Neg (NEG) Urine Phencyclidine Screen Neg (NEG) Urine Amphetamine/Methamphetamine Neg (NEG) Urine Benzodiazepines Screen Neg (NEG) Urine Cocaine Screen Neg (NEG) Urine Cannabinoids Screen Neg (NEG) Urine Ethyl Alcohol Neg (NEG) Medication Medications Current Medications Gadobutrol (Gadavist) 7.5 mmol 1X ONCE IV Last administered on 12/30/17at 11:45 ; Start 12/30/17 at 11:30; Stop 12/30/17 at 11:31; Status DC Comment Review of Relevant I have reviewed the following items fanny (where applicable) has been applied. KIRSTEN ANTHONY MD Dec 30, 2017 17:56
== END 2017-12-30 14:30 | disposition home or self-care (01) | DRG 55 ==
LOC: CVICU 04:14
PROVIDERS: ADMIT Family Medicine; ATTEND Family Medicine
DX: D44.6 Neoplasm of uncertain behavior of carotid body (principal); I31.3 Pericardial effusion (noninflammatory); M19.90 Unspecified osteoarthritis, unspecified site; J45.909 Unspecified asthma, uncomplicated; H54.61 Unqualified visual loss, right eye, normal vision left eye; G89.29 Other chronic pain; M54.5 Low back pain; F17.210 Nicotine dependence, cigarettes, uncomplicated; K21.9 Gastro-esophageal reflux disease without esophagitis; N28.9 Disorder of kidney and ureter, unspecified; E11.9 Type 2 diabetes mellitus without complications; Z82.49 Family history of ischemic heart disease and other diseases of the circulatory system; Z90.710 Acquired absence of both cervix and uterus
CPT/HCPCS: 36415; 70553; 80048; 80307; 84443; 85025; 93306; A9585; J7120; J8597; 95992; 97110; 97116